=== PATIENT | male | born 1970 | race American Indian/Alaskan Native ===

== ENCOUNTER 2019-05-19 06:00 | Day surgery (SDC) | payer MEDICARE ==
[~2019-05-19 06:00] MED LIST: SODIUM CHLORIDE 0.9% 1000 ML 1,000 ML IV SCH; SODIUM CHLORIDE 0.9% IRR 1,500 ML BOTTLE IR ONE; ceFAZolin/Water 2 GM/20 ML 2 GM/20 ML SYRINGE IV NR
[2019-05-19] MEDS ORDERED: BACTERIOSTATIC SODIUM CHLORIDE 0.9% 30 ML VIAL INFILTRATI ONE (06:02)
[2019-05-19 07:12] LABS: Calcium 8.7 mg/dL (8.4-10.2)
[2019-05-19] MEDS ORDERED: fentaNYL 100 MCG/2 ML INJ IV PRN (07:12)
--- NOTE | 2019-05-19 07:14 | Anesthesia Day of Surgery ---
Anesthesia Day of Surgery - Day of Surgery Patient Examined: Yes Patient H&P Reviewed: Yes Patient is NPO: Yes
--- NOTE | 2019-05-19 07:14 | Anesthesia Consultation ---
Anesthesia Consult and Med Hx Date of service: 05/19/19 - Airway Anesthetic Teeth Evaluation: Chipped ROM Head & Neck: Adequate Mental/Hyoid Distance: Adequate Mallampati Class: Class II Intubation Access Assessment: Possibly Difficult - Pulmonary Exam CTA: Yes - Cardiac Exam Cardiac Exam: RRR - Pre-Operative Health Status ASA Pre-Surgery Classification: ASA3 Proposed Anesthetic Plan: General - Pulmonary Hx Asthma: Yes (last inhaler use >2 months ago) Hx Respiratory Symptoms: No - Cardiovascular System Hx Hypertension: Yes (took nifedipine and hydralazine this morning) Hx Heart Attack/AMI: No Hx Percutaneous Transluminal Coronary Angioplasty (PTCA): No Hx Cardia Arrhythmia: No - Central Nervous System CVA: No Hx Psychiatric Problems: No - Gastrointestinal Hx Gastroesophageal Reflux Disease: No - Endocrine Hx End Stage Renal Disease: Yes (last HD 05/17/2019) Hx Liver Disease: No Hx Non-Insulin Dependent Diabetes: Yes Hx Thyroid Disease: No - Other Systems Hx Obesity: Yes (BMI 47) - Additional Comments Anesthesia Medical History Comments: No hx anesthetic complications.
[2019-05-19] MEDS ORDERED: THROMBIN (RECOMBINANT) 5,000 UNIT VIAL TP ONE ×2 (07:15→09:33)
[2019-05-19] MEDS ORDERED: GELATIN SPONGE SIZE 100 TP ONE (07:15)
[2019-05-19] MEDS ORDERED: SODIUM CHLORIDE 0.9% 250ML 250 ML ONE (07:16)
[2019-05-19] MEDS ORDERED: HEPARIN 10,000 UNITS/10 ML VIAL ONE (07:16)
[2019-05-19] MEDS ORDERED: BUPIVACAINE-EPINEPHRINE/PF 0.25%-1:200,000 (30 ML) VIAL INFILTRATI ONE (07:17)
[2019-05-19] MEDS ORDERED: LIDOCAINE (1%) 10 MG/1 ML VIAL 20 ML MDV ONE (07:17)
[2019-05-19 07:38] LABS: Basophils # (Auto) 0.1 K/mm3 (0.0-0.1); Eosinophils # (Auto) 0.2 K/mm3 (0.0-0.4); Eosinophils % (Auto) 2.3 % (0.0-4.3); Hematocrit 22.4 % (35.5-45.6); Hemoglobin 7.3 gm/dl (11.8-15.2); Lymphocytes # (Auto) 1.3 K/mm3 (1.2-5.4); Lymphocytes % (Auto) 17.5 % (13.4-35.0); Mean Corpuscular HGB Conc 33 % (32-34); Mean Corpuscular Volume 93 fl (84-94); Monocytes # (Auto) 0.6 K/mm3 (0.0-0.8); Monocytes % (Auto) 8.2 % (0.0-7.3); Platelet Count 316 K/mm3 (140-440); Red Cell Distribution Width 18.2 % (13.2-15.2)
[2019-05-19] MEDS ORDERED: HYDROmorphone 1 MG/1 ML INJ ONE (07:48)
[2019-05-19] MEDS ORDERED: PROPOFOL 200 MG/20 ML VIAL IV ONE ×2 (07:48→08:29)
[2019-05-19] MEDS ORDERED: LIDOCAINE MPF (2%) 20 MG/1 ML VIAL 5 ML ONE (07:50)
[2019-05-19] MEDS ORDERED: HEPARIN 10,000 UNITS/10 ML VIAL IV ONE (09:17)
[2019-05-19] MEDS ORDERED: SODIUM CHLORIDE 0.9% 250 ML IVPB IV ONE (09:17)
[2019-05-19] MEDS ORDERED: GELATIN SPONGE 12 X 7 TP ONE (09:33)
[2019-05-19] MEDS ORDERED: SODIUM CHLORIDE 0.9% IRR 1,500 ML BOTTLE IR ONE (09:37)
[2019-05-19] MEDS ORDERED: PROTAMINE SULFATE 50 MG/5 ML INJ ONE (09:49)
--- NOTE | 2019-05-19 10:14 | Post Operative Note ---
Pre-op diagnosis: ESRD Post-op diagnosis: same Procedure: Left Arm Brachiocephalic AV Fistula Creation Anesthesia: GETA Surgeon: ALBA SPEARS Estimated blood loss: minimal Pathology: none Condition: stable Disposition: PACU
[2019-05-19] MEDS ORDERED: oxyCODONE /ACETAMINOPHEN 5-325MG TAB PO PRN (10:19)
--- NOTE | 2019-05-19 10:19 | Short Stay Summary ---
Short Stay Documentation Date of service: 05/19/19 - History H&P: obtained from office Past Medical History: diabetes, ESRD - Allergies and Medications Current Medications: Allergies diphenhydramine [From Benadryl] Allergy (Verified 05/14/19 16:14) Hives seafood Allergy (Uncoded 05/14/19 16:14) Shortness of Breath Home Medications Medication Instructions Recorded Confirmed Last Taken Type Docusate Sodium [Colace CAP] 100 mg PO BID #60 capsule 05/02/19 05/19/19 05/18/19 09:00 Rx Fe Fumarate/FA/Mv, Min Comb#15 1 each PO QDAY #90 capsule 05/02/19 05/19/19 05/18/19 09:00 Rx [Hemocyte Plus] Furosemide [Lasix TAB] 80 mg PO DAILY #30 tablet 05/02/19 05/19/19 05/18/19 09:00 Rx NIFEdipine XL [Procardia Xl] 60 mg PO Q12HR #60 tablet 05/02/19 05/19/19 05/19/19 04:30 Rx hydrALAZINE [Apresoline TAB] 100 mg PO TID #90 tab 05/02/19 05/19/19 05/19/19 04:30 Rx Albuterol Sulfate [Proventil Hfa] 2 puff IH Q4H PRN 05/14/19 05/14/19 Unknown History Active Medications Fentanyl (Sublimaze) 50 mcg IV Q5MIN PRN PRN Reason: Pain , Severe (7-10) Stop: 05/19/19 22:00 Cefazolin Sodium (Ancef/Sterile Water 2 Gm/20 Ml) 2 gm in 20 mls @ 80 mls/hr IV PREOP NR; Protocol Stop: 05/19/19 23:59 Sodium Chloride (Nacl 0.9% 1000 Ml) 1,000 mls @ 42 mls/hr IV DIRECT HANDY Last Admin: 05/19/19 07:00 Dose: 42 mls/hr Documented by: - Physical exam General appearance: no acute distress Lungs: Normal air movement Heart: Regular rate Extremities: no ischemia - Hospital course Hospital course: the patient was taken to the operating room and had a left arm av fistula creation performed. please refer to the operative note concerning details of the procedure. the patient tolerated the procedure well and was discharged home in stable condition. - Disposition Condition at discharge: Stable Disposition: DC-01 TO HOME OR SELFCARE - Discharge Diagnoses (1) ESRD (end stage renal disease) on dialysis Status: Acute Short Stay Discharge Plan Follow up with: ENZO SANDOVAL MD [Primary Care Provider] - 7 Days
--- NOTE | 2019-05-19 11:07 | Operative Report ---
STAFF SURGEON: Dr. Ho Torres. PREOPERATIVE DIAGNOSIS: End-stage renal disease. POSTOPERATIVE DIAGNOSIS: End-stage renal disease. PROCEDURE PERFORMED: Left arm brachiocephalic AV fistula creation. COMPLICATIONS: None. ESTIMATED BLOOD LOSS: 10 mL. ANESTHESIA: General. INDICATIONS FOR PROCEDURE: This is a 49-year-old gentleman with insulin-dependent diabetes mellitus and end-stage renal disease, on hemodialysis via right IJ PermCath in need of upper extremity access creation. The patient had preoperative vein mapping, which demonstrated thought to be suitable upper arm cephalic vein for AV fistula creation. The patient was explained the risks, benefits and alternatives of procedure, expressed understanding, and wished to proceed. DESCRIPTION OF PROCEDURE: After appropriate consent was obtained, the patient was brought back to the operating room and placed on the operating table in supine position with the left arm extended. The patient was given appropriate medication for general anesthesia, had LMA placed without difficulty. The left arm was prepped and draped in the usual sterile fashion with ChloraPrep. Appropriate preoperative antibiotics were administered. Appropriate timeout was performed indicating correct patient, procedure, and site of procedure. I then began the operation by making a transverse incision just below the antecubital fossa. This was carried through the subcutaneous tissue with a combination of blunt dissection and electrocautery. The cephalic vein was identified and found to be suitable size for venous outflow. The vein was then mobilized in its entirety of the incision both proximally and distally. Branches were controlled and ligated with silk suture. I then proceeded to continue with our dissection medially through the bicipital aponeurosis. The brachial artery was identified and found to be suitable for arterial inflow and so it was mobilized for appropriate distance both proximally and distally. The patient was given unfractionated heparin intravenously. After appropriate timeout elapsed, I then proceeded to place a clamp on the cephalic vein in the distal aspect of the incision. This was transected. A bulldog was placed on the proximal portion and the anterior surface was marked and then proceeded to flush the cephalic vein with a heparinized saline. The stump of the vein was ligated with a 3-0 silk suture. We then proceeded to place vascular clamps on the brachial artery, both proximally and distally. A longitudinal arteriotomy was made with an 11 blade and extended with Nugent scissors and then proceeded to perform the end-to-side anastomosis with a running 6-0 Prolene suture. Once complete, flow was reestablished through the AV fistula and had a nice palpable thrill. The distal clamp was removed. We then looked to obtain hemostasis along our suture line, which was obtained with hemostatic agents. The patient was also given protamine for heparinization reversal and satisfied with hemostasis, closed along with the deep subcutaneous layer with interrupted 3-0 PDS, and skin was approximated with 4-0 Monocryl and with Dermabond dressing. The patient tolerated the procedure well, emerged from the general anesthesia, had the LMA removed, and was sent to recovery in stable condition. All sponge, instrument and needle counts were correct at completion of the operation. JOB# [id number] SOFIA/SPARKLE
--- NOTE | 2019-05-19 16:59 | Post Anesthesia Evaluation ---
- Post Anesthesia Evaluation Patient Participated: Yes Airway Patent: Yes Stable Respiratory Function: Yes Nausea/Vomiting: No Temp > 96.8F: Yes Pain Manageable: Yes Adequeate Hydration: Yes Anesthesia Complications: No Block Receding Appropriately: Not Applicable Patient on Ventilator: No
[2019-05-19 21:30] VITALS: BP 138/76
== END 2019-05-19 06:01 | disposition home or self-care (01) ==
LOC: OR 06:00
PROVIDERS: ATTEND Surgery Vascular Surgery
DX: I12.0 Hypertensive chronic kidney disease with stage 5 chronic kidney disease or end stage renal disease (principal); E11.22 Type 2 diabetes mellitus with diabetic chronic kidney disease; E11.319 Type 2 diabetes mellitus with unspecified diabetic retinopathy without macular edema; N18.6 End stage renal disease; E66.2 Morbid (severe) obesity with alveolar hypoventilation; G93.41 Metabolic encephalopathy; E78.00 Pure hypercholesterolemia, unspecified; J45.909 Unspecified asthma, uncomplicated; Z88.8 Allergy status to other drugs, medicaments and biological substances; Z91.013 Allergy to seafood; Z79.899 Other long term (current) drug therapy; Z98.41 Cataract extraction status, right eye; Z68.42 Body mass index [BMI] 45.0-49.9, adult
CPT/HCPCS: 36415; 36821; 80048; 82962; 85025; A4649; J0690; J1170; J1644; J2704; J2720; J7030; J7050

== ENCOUNTER 2019-07-14 11:35 | Day surgery (SDC) | payer MEDICARE ==
[~2019-07-14 11:35] MED LIST changes: +GELATIN SPONGE SIZE 100 TP ONE; -SODIUM CHLORIDE 0.9% IRR 1,500 ML BOTTLE IR ONE; +THROMBIN (RECOMBINANT) 5,000 UNIT VIAL TP ONE; -ceFAZolin/Water 2 GM/20 ML 2 GM/20 ML SYRINGE IV NR
[2019-07-14 13:09] LABS: Hematocrit 32.2 % (35.5-45.6); Hemoglobin 10.3 gm/dl (11.8-15.2); Mean Corpuscular HGB Conc 32 % (32-34); Mean Corpuscular Volume 93 fl (84-94); Platelet Count 253 K/mm3 (140-440); Red Blood Count 3.48 M/mm3 (3.65-5.03)
[2019-07-14 13:25] LABS: Calcium 8.3 mg/dL (8.4-10.2)
[2019-07-14] MEDS ORDERED: fentaNYL 100 MCG/2 ML INJ IV PRN (17:13)
== END 2019-07-14 11:36 | disposition home or self-care (01) ==
LOC: OR 11:35
PROVIDERS: ATTEND Surgery Vascular Surgery
DX: I12.0 Hypertensive chronic kidney disease with stage 5 chronic kidney disease or end stage renal disease (principal); E11.22 Type 2 diabetes mellitus with diabetic chronic kidney disease; N18.6 End stage renal disease; E78.00 Pure hypercholesterolemia, unspecified; E11.39 Type 2 diabetes mellitus with other diabetic ophthalmic complication; J45.909 Unspecified asthma, uncomplicated; E66.9 Obesity, unspecified; Z98.890 Other specified postprocedural states; Z91.013 Allergy to seafood; Z53.8 Procedure and treatment not carried out for other reasons
CPT/HCPCS: 36415; 80048; 82962; 85027; A4649; J7030; J0690

== ENCOUNTER 2019-07-18 06:36 | Day surgery (SDC) | payer MEDICARE ==
[~2019-07-18 06:36] MED LIST changes: -GELATIN SPONGE SIZE 100 TP ONE; -THROMBIN (RECOMBINANT) 5,000 UNIT VIAL TP ONE
[2019-07-18] MEDS ORDERED: BACTERIOSTATIC SODIUM CHLORIDE 0.9% 30 ML VIAL INFILTRATI ONE (06:56)
[2019-07-18] MEDS ORDERED: ceFAZolin/Water 2 GM/20 ML 2 GM/20 ML SYRINGE IV NR (07:00)
[2019-07-18] MEDS ORDERED: fentaNYL 100 MCG/2 ML INJ IV PRN (08:30)
--- NOTE | 2019-07-18 08:30 | Anesthesia Day of Surgery ---
Anesthesia Day of Surgery - Day of Surgery Patient Examined: Yes Patient H&P Reviewed: Yes Patient is NPO: Yes
--- NOTE | 2019-07-18 08:30 | Anesthesia Consultation ---
Anesthesia Consult and Med Hx Date of service: 07/18/19 - Airway Anesthetic Teeth Evaluation: Good ROM Head & Neck: Adequate Mental/Hyoid Distance: Adequate Mallampati Class: Class III Intubation Access Assessment: Possibly Difficult (previous easy LMA 4 placement) - Pulmonary Exam CTA: Yes - Cardiac Exam Cardiac Exam: RRR - Pre-Operative Health Status ASA Pre-Surgery Classification: ASA3 Proposed Anesthetic Plan: General - Pulmonary Hx Asthma: Yes (last inhaler use after exposure to seafood) Hx Respiratory Symptoms: No - Cardiovascular System Hx Hypertension: Yes (took hydralazine and nifedipine this morning) Hx Heart Attack/AMI: No Hx Percutaneous Transluminal Coronary Angioplasty (PTCA): No Hx Cardia Arrhythmia: No - Central Nervous System CVA: No Hx Psychiatric Problems: No - Gastrointestinal Hx Gastroesophageal Reflux Disease: No - Endocrine Hx End Stage Renal Disease: Yes (last HD 07/17/2019) Hx Liver Disease: No Hx Non-Insulin Dependent Diabetes: Yes Hx Thyroid Disease: No - Hematic Hx Anemia: Yes - Other Systems Hx Obesity: Yes (BMI 44) - Additional Comments Anesthesia Medical History Comments: No hx anesthetic complications.
[2019-07-18] MEDS ORDERED: propofoL 200 MG/20 ML VIAL IV ONE ×2 (08:47→09:31)
[2019-07-18] MEDS ORDERED: LIDOCAINE MPF (2%) 20 MG/1 ML VIAL 5 ML ONE (08:47)
[2019-07-18] MEDS ORDERED: HYDROmorphone 1 MG/1 ML INJ ONE (08:47)
[2019-07-18] MEDS ORDERED: ONDANSETRON 4 MG/2 ML INJ ONE (08:47)
[2019-07-18] MEDS ORDERED: PROTAMINE SULFATE 50 MG/5 ML INJ ONE (08:53)
[2019-07-18] MEDS ORDERED: THROMBIN (RECOMBINANT) 5,000 UNIT VIAL TP ONE ×2 (08:53→10:00)
[2019-07-18] MEDS ORDERED: HEPARIN 10,000 UNITS/10 ML VIAL ONE (08:53)
[2019-07-18] MEDS ORDERED: SODIUM CHLORIDE 0.9% 250ML 250 ML ONE (08:53)
[2019-07-18] MEDS ORDERED: GELATIN SPONGE SIZE 100 TP ONE ×2 (09:36→10:00)
[2019-07-18] MEDS ORDERED: ceFAZolin 1 GM VIAL ONE (09:44)
[2019-07-18] MEDS ORDERED: HEPARIN 10,000 UNITS/10 ML VIAL IR ONE (09:59)
[2019-07-18] MEDS ORDERED: SODIUM CHLORIDE 0.9% 250 ML IVPB IR ONE (09:59)
[2019-07-18] MEDS ORDERED: SODIUM CHLORIDE 0.9% IRR 1,500 ML BOTTLE IR ONE (10:00)
[2019-07-18] MEDS ORDERED: PROTAMINE SULFATE 50 MG/5 ML INJ IV ONE (10:51)
[2019-07-18] MEDS ORDERED: oxyCODONE /ACETAMINOPHEN 5-325MG TAB PO PRN (12:38)
--- NOTE | 2019-07-18 12:38 | Post Operative Note ---
Date of procedure: 07/18/19 Pre-op diagnosis: ESRD Post-op diagnosis: same Procedure: Left Arm Cephalic Vein Transposition Anesthesia: GETA Surgeon: ALBA SPEARS Estimated blood loss: other (25ml) Pathology: none Condition: stable Disposition: PACU
--- NOTE | 2019-07-18 12:40 | Short Stay Summary ---
Short Stay Documentation Date of service: 07/18/19 - History H&P: obtained from office Past Medical History: diabetes, ESRD - Allergies and Medications Current Medications: Allergies diphenhydramine [From Benadryl] Allergy (Verified 07/16/19 10:58) Hives seafood Allergy (Uncoded 07/16/19 10:58) Shortness of Breath Home Medications Medication Instructions Recorded Confirmed Last Taken Type Docusate Sodium [Colace CAP] 100 mg PO BID #60 capsule 05/02/19 07/16/19 07/17/19 Rx Fe Fumarate/FA/Mv, Min Comb#15 1 each PO QDAY #90 capsule 05/02/19 07/16/19 07/17/19 Rx [Hemocyte Plus] Furosemide [Lasix TAB] 80 mg PO DAILY #30 tablet 05/02/19 07/16/19 07/17/19 Rx NIFEdipine XL [Procardia Xl] 60 mg PO Q12HR #60 tablet 05/02/19 07/16/19 07/18/19 04:45 Rx hydrALAZINE [Apresoline TAB] 100 mg PO TID #90 tab 05/02/19 07/16/19 07/18/19 04:45 Rx Albuterol Sulfate [Proventil Hfa] 2 puff IH Q4H PRN 05/14/19 07/16/19 04/16/19 08:00 History Active Medications Fentanyl (Sublimaze) 50 mcg IV Q5MIN PRN PRN Reason: Pain , Severe (7-10) Stop: 07/18/19 23:00 Cefazolin Sodium (Ancef/Sterile Water 2 Gm/20 Ml) 2 gm in 20 mls @ 80 mls/hr IV PREOP NR; Protocol Stop: 07/18/19 23:59 Sodium Chloride (Nacl 0.9% 1000 Ml) 1,000 mls @ 42 mls/hr IV DIRECT HANDY Last Admin: 07/18/19 07:10 Dose: 42 mls/hr Documented by: - Physical exam General appearance: no acute distress Lungs: Normal air movement Heart: Regular rate Extremities: no ischemia - Hospital course Hospital course: the patient was taken to the operating room and had a left arm cephalic vein transposition performed. please refer to the operative note concerning details of the procedure. the patient tolerated the procedure well and was discharged home in stable condition. - Disposition Condition at discharge: Stable Disposition: DC-01 TO HOME OR SELFCARE - Discharge Diagnoses (1) ESRD (end stage renal disease) on dialysis Status: Acute Short Stay Discharge Plan Follow up with: ENZO SANDOVAL MD [Primary Care Provider] - 7 Days
--- NOTE | 2019-07-18 12:57 | Operative Report ---
SURGEON: Dr. Ho Torres. PREOPERATIVE DIAGNOSIS: End-stage renal disease. POSTOPERATIVE DIAGNOSIS: End-stage renal disease. PROCEDURE PERFORMED: Left arm cephalic vein transposition. COMPLICATIONS: None. ESTIMATED BLOOD LOSS: 25 mL. ANESTHESIA: General. INDICATIONS FOR PROCEDURE: This is a 49-year-old gentleman with end-stage renal disease, on hemodialysis, who had a left brachiocephalic AV fistula created that matured properly. However, I attempted cannulation by the patient's facility, they were unable to cannulate the fistula. The patient had a diagnostic fistulogram that was unremarkable and it was felt that the fistula was too deep and would require transposition. The patient was explained the risks, benefits and alternatives of procedure, expressed understanding and wished to proceed. DESCRIPTION OF PROCEDURE: After appropriate consent was obtained, the patient was brought back to the operating room and placed on the operating table in supine position with left arm extended. The patient was given appropriate medication for general anesthesia, had LMA placed without difficulty. Left arm was prepped and draped in the usual sterile fashion with ChloraPrep. Appropriate preoperative antibiotics were administered. Appropriate timeout was performed indicating correct patient, procedure, and site of the procedure. I then began the operation by making a longitudinal incision just proximal to the antecubital fossa overlying the AV fistula. This was carried through subcutaneous tissue with a combination of blunt dissection and electrocautery, the AV fistula was identified. The incision was then extended proximally up the arm near the shoulder. Again, the dissection was continued through the subcutaneous tissue with a combination of blunt dissection and electrocautery. The fistula was exposed in its entirety. The branches of the cephalic vein were identified, clamped and then transected and ligated with silk suture. The fistula was completely mobilized, the anterior surface was marked. Vascular clamps were placed on the cephalic vein, both proximally and distally. It was transected near the distal end of the incision. The rest of the vein was flushed with heparinized saline, then proceeded to create a tunnel medial to the incision. A subcutaneous tunnel medial to the incision with care to avoid any twisting or kinking. We then proceeded to do an end-to-end anastomosis between the two cut ends with a running 6-0 Prolene suture. Once this was completed, the vascular clamps were removed. Flow was reestablished through the fistula had a nice palpable thrill. We then looked to obtain hemostasis along the suture line, which was obtained with hemostatic agents. Once we were satisfied with hemostasis, we then proceeded to close the wound with interrupted PDS for deep subcutaneous layer and then the skin was approximated with rosette. Appropriate dressing was placed. The patient tolerated the procedure well, emerged from the general anesthesia, the LMA removed without difficulty and was sent to recovery in stable condition. All sponge, instrument and needle counts were correct at completion of the operation. JOB# [id number] N/SPARKLE
[2019-07-18 13:19] VITALS: BP 120/65
--- NOTE | 2019-07-18 15:43 | Post Anesthesia Evaluation ---
- Post Anesthesia Evaluation Patient Participated: Yes Airway Patent: Yes Stable Respiratory Function: Yes Nausea/Vomiting: No Temp > 96.8F: Yes Pain Manageable: Yes Adequeate Hydration: Yes Anesthesia Complications: No
== END 2019-07-18 06:37 | disposition home or self-care (01) ==
LOC: OR 06:36
PROVIDERS: ATTEND Surgery Vascular Surgery
DX: I12.0 Hypertensive chronic kidney disease with stage 5 chronic kidney disease or end stage renal disease (principal); E11.22 Type 2 diabetes mellitus with diabetic chronic kidney disease; E78.00 Pure hypercholesterolemia, unspecified; D64.9 Anemia, unspecified; E11.39 Type 2 diabetes mellitus with other diabetic ophthalmic complication; J45.909 Unspecified asthma, uncomplicated; Z98.890 Other specified postprocedural states; Z98.41 Cataract extraction status, right eye; Z91.013 Allergy to seafood; G93.41 Metabolic encephalopathy; E66.2 Morbid (severe) obesity with alveolar hypoventilation; Z88.8 Allergy status to other drugs, medicaments and biological substances; Z79.899 Other long term (current) drug therapy
CPT/HCPCS: 36415; 36818; 82962; 84132; A4649; J0690; J1170; J1644; J2405; J2704; J2720; J7030; J7050

== ENCOUNTER 2020-07-27 07:34 | Day surgery (SDC) | payer MEDICARE ==
--- NOTE | 2020-07-27 08:37 | Anesthesia Day of Surgery ---
Anesthesia Day of Surgery - Day of Surgery Patient Examined: Yes Patient H&P Reviewed: Yes Patient is NPO: Yes
--- NOTE | 2020-07-27 08:37 | Anesthesia Consultation ---
Anesthesia Consult and Med Hx Date of service: 07/27/20 - Airway Anesthetic Teeth Evaluation: Poor, Chipped ROM Head & Neck: Adequate Mental/Hyoid Distance: Adequate Mallampati Class: Class III Intubation Access Assessment: Possibly Difficult - Pulmonary Exam CTA: Yes - Cardiac Exam Cardiac Exam: RRR - Pre-Operative Health Status ASA Pre-Surgery Classification: ASA3 Proposed Anesthetic Plan: MAC - Pre-Anesthesia Comment Pre-Anesthesia Comments: Covid 05/2020 - Pulmonary Hx Asthma: Yes - Cardiovascular System Hx Hypertension: Yes ( discontinued meds 6months ) - Central Nervous System CVA: No Hx Psychiatric Problems: No - Gastrointestinal Hx Gastroesophageal Reflux Disease: No - Endocrine Hx Renal Disease: Yes Hx End Stage Renal Disease: Yes (Tu/Thur/Sat last HD 07/24) Hx Non-Insulin Dependent Diabetes: Yes - Hematic Hx Anemia: Yes - Other Systems Hx Obesity: Yes (BMI 44)
[2020-07-27] MEDS ORDERED: propofoL 200 MG/20 ML VIAL IV ONE ×2 (09:21)
--- NOTE | 2020-07-27 10:32 | Short Stay Summary ---
Short Stay Documentation Date of service: 07/27/20 - History H&P: obtained from office - Allergies and Medications Current Medications: Allergies diphenhydramine [From Benadryl] Allergy (Verified 07/16/19 10:58) Hives seafood Allergy (Uncoded 07/16/19 10:58) Shortness of Breath Home Medications Medication Instructions Recorded Confirmed Last Taken Type Docusate Sodium [Colace CAP] 100 mg PO BID #60 capsule 05/02/19 07/27/20 07/25/20 Rx Furosemide [Lasix TAB] 80 mg PO DAILY #30 tablet 05/02/19 07/27/20 07/26/20 Rx Albuterol Sulfate [Proventil Hfa] 2 puff IH Q4H PRN 05/14/19 07/27/20 11/15/19 History Active Medications Sodium Chloride (Nacl 0.9% 1000 Ml) 1,000 mls @ 50 mls/hr IV DIRECT HANDY Last Admin: 07/27/20 09:00 Dose: 50 mls/hr Documented by: - Brief post op/procedure progress note Date of procedure: 07/27/20 Procedure: see dictation Estimated blood loss: none Pathology: none Condition: stable - Disposition Condition at discharge: Good Disposition: DC-01 TO HOME OR SELFCARE - Discharge Diagnoses (1) Iron deficiency anemia due to chronic blood loss Status: Acute Short Stay Discharge Plan Activity: other (no driving for 24 hours) Weight Bearing Status: Full Weight Bearing Diet: renal Follow up with: ENZO SANDOVAL MD [Primary Care Provider] - 7 Days
--- NOTE | 2020-07-27 10:36 | Operative Report ---
Operative Report Operative Report: Date of procedure: 07/27/2020 Preprocedure diagnosis: Iron deficiency anemia due to suspected GI blood loss Post procedure diagnosis: Mild sigmoid diverticulosis, otherwise normal study although incomplete prep of the cecum Procedure: Colonoscopy to the cecum Endoscopist: Dr. Bryan Anesthesia: Monitored anesthesia care per anesthesia department Estimated blood loss: 0 Medications: Monitored anesthesia care. See separate report by anesthesia for details. After careful discussion of the nature and purpose of the procedure as well as details of the technique risks benefits and alternatives the patient gave consent. Please see recent history and physical from the office. The patient was placed in the left lateral decubitus position and medicated per anesthesia. A rectal exam was performed sphincter tone was normal there were no masses palpable. The [employer] 570 scope was passed transanally and advanced under continuous direct vision without difficulty to the cecum. The colon was largely well prepared except for the cecum. The cecum was grossly normal although there were areas of the cecum where the mucosa could not be seen due to incomplete clearance of stool. The ascending colon was normal. The transverse colon and descending colon were normal. There were a few sigmoid diverticula present. The rectum was normal on forward and retroflexed views. The procedure was well- tolerated overall and the patient was observed in recovery. Conclusions: Few sigmoid diverticula. Incomplete cecal prep. Normal colon otherwise. Plan: Repeat colonoscopy in 1 to 2 years due to incomplete cecal prep. Signed electronically: Geovanni Bryan M.D.
[2020-07-27 11:18] VITALS: BP 141/62
== END 2020-07-27 11:20 | disposition home or self-care (01) ==
LOC: GIO 07:34
PROVIDERS: ATTEND Internal Medicine Gastroenterology
DX: D50.0 Iron deficiency anemia secondary to blood loss (chronic) (principal); K57.30 Diverticulosis of large intestine without perforation or abscess without bleeding; G93.41 Metabolic encephalopathy; E78.00 Pure hypercholesterolemia, unspecified; J45.909 Unspecified asthma, uncomplicated; E66.9 Obesity, unspecified; I12.0 Hypertensive chronic kidney disease with stage 5 chronic kidney disease or end stage renal disease; E11.22 Type 2 diabetes mellitus with diabetic chronic kidney disease; N18.6 End stage renal disease; Z88.8 Allergy status to other drugs, medicaments and biological substances; Z79.899 Other long term (current) drug therapy; Z98.41 Cataract extraction status, right eye; Z98.890 Other specified postprocedural states; Z68.42 Body mass index [BMI] 45.0-49.9, adult
CPT/HCPCS: 45378; 82962; J2704; J7030

== ENCOUNTER 2020-08-03 18:05 | Observation (INO) | payer MEDICARE ==
[2020-08-03 19:40] LABS: Hematocrit 31.1 % (35.5-45.6); Mean Corpuscular HGB Conc 32 % (32-34); Mean Corpuscular Volume 102 fl (84-94); Platelet Count 266 K/mm3 (140-440); Red Blood Count 3.04 M/mm3 (3.65-5.03); Red Cell Distribution Width 16.4 % (13.2-15.2)
[2020-08-03 19:49] LABS: Calcium 7.2 mg/dL (8.4-10.2)
--- NOTE | 2020-08-03 20:12 | Emergency Department Report ---
ED General Adult HPI - General Chief complaint: Medical Clearance Stated complaint: REFFERED BY VASCULAR DOCTOR Time Seen by Provider: 08/03/20 20:05 Source: patient Mode of arrival: Ambulatory Limitations: No Limitations - History of Present Illness Initial comments: Patient is 50 years old male with history of end-stage renal disease on hemodialysis. Patient was sent from Dr. Egan, vascular surgeon for admission for emergency dialysis. Patient had a permacath placed in his office. Patient stated that he usually goes Sunday, Sunday and . Patient denied any symptom at this moment. Patient was found to have a potassium of 6.2 in the office. - Related Data Home Medications Medication Instructions Recorded Confirmed Last Taken Albuterol Sulfate [Proventil Hfa] 2 puff IH Q4H PRN 05/14/19 07/27/20 11/15/19 Previous Rx's Medication Instructions Recorded Last Taken Type Docusate Sodium [Colace CAP] 100 mg PO BID #60 capsule 05/02/19 07/25/20 Rx Furosemide [Lasix TAB] 80 mg PO DAILY #30 tablet 05/02/19 07/26/20 Rx Allergies Allergy/AdvReac Type Severity Reaction Status Date / Time diphenhydramine Allergy Hives Verified 07/16/19 10:58 [From Benadryl] seafood Allergy Shortness Uncoded 07/16/19 10:58 of Breath ED Review of Systems ROS: Stated complaint: REFFERED BY VASCULAR DOCTOR Other details as noted in HPI Comment: All other systems reviewed and negative Constitutional: denies: chills, fever Respiratory: denies: cough, shortness of breath, SOB with exertion Cardiovascular: denies: chest pain, palpitations Gastrointestinal: denies: abdominal pain, nausea Musculoskeletal: denies: back pain Neurological: denies: headache, weakness, numbness ED Past Medical Hx - Past Medical History Previous Medical History?: Yes Hx Hypertension: Yes ( discontinued meds 6months ) Hx Diabetes: Yes Hx Renal Disease: Yes (on dialysis ,, ) Hx Asthma: Yes - Surgical History Past Surgical History?: Yes Additional Surgical History: Vas cath placed 08/03/20 - Social History Smoking Status: Never Smoker - Medications Home Medications: Home Medications Medication Instructions Recorded Confirmed Last Taken Type Docusate Sodium [Colace CAP] 100 mg PO BID #60 capsule 01/07/27/20 07/25/20 Rx Furosemide [Lasix TAB] 80 mg PO DAILY #30 tablet 05/02/19 07/27/20 07/26/20 Rx Albuterol Sulfate [Proventil Hfa] 2 puff IH Q4H PRN 05/14/19 07/27/20 11/15/19 History ED Physical Exam - General Limitations: No Limitations General appearance: alert, in no apparent distress - Head Head exam: Present: atraumatic, normocephalic, normal inspection - Eye Eye exam: Present: normal appearance - ENT ENT exam: Present: normal exam, normal orophraynx, mucous membranes moist - Neck Neck exam: Present: normal inspection, full ROM. Absent: tenderness, meningismus - Respiratory Respiratory exam: Present: normal lung sounds bilaterally - Cardiovascular Cardiovascular Exam: Present: regular rate, normal rhythm, normal heart sounds - GI/Abdominal GI/Abdominal exam: Present: soft, normal bowel sounds. Absent: distended, tenderness, guarding, rebound, rigid, organomegaly, mass, bruit, pulsatile mass, hernia - Extremities Exam Extremities exam: Present: normal inspection, full ROM, normal capillary refill. Absent: pedal edema, calf tenderness - Back Exam Back exam: Present: normal inspection, full ROM. Absent: CVA tenderness (R), CVA tenderness (L) - Neurological Exam Neurological exam: Present: alert, oriented X3, CN II-XII intact - Psychiatric Psychiatric exam: Present: normal mood - Skin Skin exam: Present: warm, intact, normal color ED Course Vital Signs 08/03/20 19:50 Temperature 98.1 F Pulse Rate 95 H Respiratory 18 Rate Blood Pressure 180/80 [Right] O2 Sat by Pulse 99 Oximetry ED Medical Decision Making - Lab Data Result diagrams: 08/03/20 19:15 08/03/20 19:15 - Medical Decision Making Patient is 50 years old male with history of end-stage renal disease on hemodialysis. Patient was sent from Dr. Egan, vascular surgeon for admission for emergency dialysis. Patient had a permacath placed in his office. Patient stated that he usually goes Sunday, Sunday and . Patient denied any symptom at this moment. Patient was found to have a potassium of 6.2 in the office. Patient potassium in the ER is 6. I discussed the patient with Dr. Walsh and she stated that patient can be given Kayexalate and patient will be dialyzed in the morning. Critical Care Time: Yes Critical care time in (mins) excluding proc time.: 30 Critical care attestation.: If time is entered above; I have spent that time in minutes in the direct care of this critically ill patient, excluding procedure time. ED Disposition Clinical Impression: Acute hyperkalemia, End-stage renal disease needing dialysis Disposition: OP ADMIT IP TO THIS HOSP Is pt being admited?: Yes Condition: Stable
[2020-08-03] MEDS ORDERED: SODIUM POLYSTYRENE 15 GM/60 ML ORAL LIQD PO ONE (20:22)
[2020-08-03] MEDS ORDERED: INSULIN REGULAR, HUMAN 100 UNITS/1 ML IV ONE (20:22)
[2020-08-03] MEDS ORDERED: ALBUTEROL 2.5 MG/3 ML NEBU IH ONE (20:23)
[2020-08-03 20:32] LABS: Total Cells Counted 100
[2020-08-03 20:33] LABS: Platelet Estimate Consistent w Auto; RBC Morphology Normal
[2020-08-03] MEDS ORDERED: CALCIUM CHLORIDE 1,000 MG in SODIUM CHLORIDE 0.9% 100 ML IV ONE (21:00)
[2020-08-03] MEDS ORDERED: ALBUTEROL 8.5 GM MDI INHALATION IH PRN (22:02)
[2020-08-03] MEDS ORDERED: ONDANSETRON 4 MG/2 ML INJ IV PRN (22:03)
[2020-08-03] MEDS ORDERED: ACETAMINOPHEN 325 MG TAB PO PRN (22:03)
[2020-08-03] MEDS ORDERED: hydrALAZINE 20 MG/1 ML INJ IV PRN (22:05)
[2020-08-03] MEDS ORDERED: ALBUTEROL 2.5 MG/3 ML NEBU IH PRN (22:10)
--- NOTE | 2020-08-03 22:11 | History and Physical Report ---
History of Present Illness Date of examination: 08/03/20 Date of admission: 08/03/20 Chief complaint: End-stage renal disease on hemodialysis Hyperkalemia History of present illness: 50 years old male with history of end-stage renal disease on hemodialysis on Sunday and Sunday was sent from Dr. Egan, vascular surgeon for admission for emergency dialysis. Patient had a permacath placed in his office. Patient denied any symptom at this moment. In the ER patient is found to have potassium of 6.2 BUN of 98 creatinine 14.7 and bicarb of 18 and glucose of 430 Past History Past Medical History: diabetes, ESRD Medications and Allergies Allergies Allergy/AdvReac Type Severity Reaction Status Date / Time diphenhydramine Allergy Hives Verified 07/16/19 10:58 [From Benadryl] seafood Allergy Shortness Uncoded 07/16/19 10:58 of Breath Home Medications Medication Instructions Recorded Confirmed Last Taken Type Docusate Sodium [Colace CAP] 100 mg PO BID #60 capsule 05/02/19 07/27/20 07/25/20 Rx Furosemide [Lasix TAB] 80 mg PO DAILY #30 tablet 05/02/19 07/27/20 07/26/20 Rx Albuterol Sulfate [Proventil Hfa] 2 puff IH Q4H PRN 05/14/19 07/27/20 11/15/19 History Active Meds: Active Medications Acetaminophen (Acetaminophen 325 Mg Tab) 650 mg PO Q4H PRN PRN Reason: Pain MILD(1-3)/Fever >100.5/COLINDRES Albuterol (Albuterol 8.5 Gm Mdi Inhalation) 2 puff IH Q4H PRN PRN Reason: sob Albuterol/Ipratropium (Ipratropium/Albuterol Sulfate 3 Ml Ampul.Neb) 1 ampul IH Q6HRT HANDY Docusate Sodium (Docusate Sodium 100 Mg Cap) 100 mg PO BID HANDY Famotidine (Famotidine 20 Mg Tab) 20 mg PO BID HANDY Heparin Sodium (Porcine) (Heparin 5,000 Unit/1 Ml Vial) 5,000 unit SUB-Q Q8HR HANDY Hydralazine HCl (Hydralazine 20 Mg/1 Ml Inj) 10 mg IV Q6H PRN PRN Reason: htn Ondansetron HCl (Ondansetron 4 Mg/2 Ml Inj) 4 mg IV Q8H PRN PRN Reason: Nausea And Vomiting Sodium Chloride (Sodium Chloride 0.9% 10 Ml Flush Syringe) 10 ml IV BID HANDY Sodium Chloride (Sodium Chloride 0.9% 10 Ml Flush Syringe) 10 ml IV PRN PRN PRN Reason: LINE FLUSH Sodium Polystyrene Sulfonate (Sodium Polystyrene 15 Gm/60 Ml Oral Liqd) 30 gm PO Q4H HANDY Stop: 08/04/20 03:01 Exam - Constitutional Vitals: Temp Pulse Resp BP Pulse Ox 98.1 F 95 H 18 180/80 99 08/03/20 19:50 08/03/20 19:50 08/03/20 19:50 08/03/20 19:50 08/03/20 19:50 General appearance: Present: no acute distress, well-nourished - Respiratory Respiratory: bilateral: diminished Results - Labs CBC & Chem 7: 08/03/20 19:15 08/03/20 19:15 Labs: Laboratory Last Values WBC 9.5 K/mm3 (4.5-11.0) 08/03/20 19:15 RBC 3.04 M/mm3 (3.65-5.03) L 08/03/20 19:15 Hgb 10.0 gm/dl (11.8-15.2) L 08/03/20 19:15 Hct 31.1 % (35.5-45.6) L 08/03/20 19:15 MCV 102 fl (84-94) H 08/03/20 19:15 MCH 33 pg (28-32) H 08/03/20 19:15 MCHC 32 % (32-34) 08/03/20 19:15 RDW 16.4 % (13.2-15.2) H 08/03/20 19:15 Plt Count 266 K/mm3 (140-440) 08/03/20 19:15 Add Manual Diff Complete 08/03/20 19:15 Total Counted 100 08/03/20 19:15 Seg Neutrophils % [place] Coverer Hand 08/03/20 19:15 Lymphocytes % (Manual) 3.0 % (13.4-35.0) L 08/03/20 19:15 Nucleated RBC % Not Reportable 08/03/20 19:15 Seg Neutrophils # Man 9.2 K/mm3 (1.8-7.7) H 08/03/20 19:15 Band Neutrophils # 0.0 K/mm3 08/03/20 19:15 Lymphocytes # (Manual) 0.3 K/mm3 (1.2-5.4) L 08/03/20 19:15 Abs React Lymphs (Man) 0.0 K/mm3 08/03/20 19:15 Monocytes # (Manual) 0.0 K/mm3 (0.0-0.8) 08/03/20 19:15 Eosinophils # (Manual) 0.0 K/mm3 (0.0-0.4) 08/03/20 19:15 Basophils # (Manual) 0.0 K/mm3 (0.0-0.1) 08/03/20 19:15 Metamyelocytes # 0.0 K/mm3 08/03/20 19:15 Myelocytes # 0.0 K/mm3 08/03/20 19:15 Promyelocytes # 0.0 K/mm3 08/03/20 19:15 Blast Cells # 0.0 K/mm3 08/03/20 19:15 WBC Morphology Not Reportable 08/03/20 19:15 Hypersegmented Neuts Not Reportable 08/03/20 19:15 Hyposegmented Neuts Not Reportable 08/03/20 19:15 Hypogranular Neuts Not Reportable 08/03/20 19:15 Smudge Cells Not Reportable 08/03/20 19:15 Toxic Granulation Not Reportable 08/03/20 19:15 Toxic Vacuolation Not Reportable 08/03/20 19:15 Dohle Bodies Not Reportable 08/03/20 19:15 Pelger-Huet Anomaly Not Reportable 08/03/20 19:15 Kaity Rods Not Reportable 08/03/20 19:15 Platelet Estimate Consistent w auto 08/03/20 19:15 Clumped Platelets Not Reportable 08/03/20 19:15 Plt Clumps, EDTA Not Reportable 08/03/20 19:15 Large Platelets Not Reportable 08/03/20 19:15 Giant Platelets Not Reportable 08/03/20 19:15 Platelet Satelliting Not Reportable 08/03/20 19:15 Plt Morphology Comment Not Reportable 08/03/20 19:15 RBC Morphology Normal 08/03/20 19:15 Dimorphic RBCs Not Reportable 08/03/20 19:15 Polychromasia Not Reportable 08/03/20 19:15 Hypochromasia Not Reportable 08/03/20 19:15 Poikilocytosis Not Reportable 08/03/20 19:15 Anisocytosis Not Reportable 08/03/20 19:15 Microcytosis Not Reportable 08/03/20 19:15 Macrocytosis Not Reportable 08/03/20 19:15 Spherocytes Not Reportable 08/03/20 19:15 Pappenheimer Bodies Not Reportable 08/03/20 19:15 Sickle Cells Not Reportable 08/03/20 19:15 Target Cells Not Reportable 08/03/20 19:15 Tear Drop Cells Not Reportable 08/03/20 19:15 Ovalocytes Not Reportable 08/03/20 19:15 Helmet Cells Not Reportable 08/03/20 19:15 [place] Bodies Not Reportable 08/03/20 19:15 [place] Rings Not Reportable 08/03/20 19:15 [place] Cells Not Reportable 08/03/20 19:15 Bite Cells Not Reportable 08/03/20 19:15 Crenated Cell Not Reportable 08/03/20 19:15 Elliptocytes Not Reportable 08/03/20 19:15 Acanthocytes (Spur) Not Reportable 08/03/20 19:15 Rouleaux Not Reportable 08/03/20 19:15 Hemoglobin C Crystals Not Reportable 08/03/20 19:15 Schistocytes Not Reportable 08/03/20 19:15 Malaria parasites Not Reportable 08/03/20 19:15 Be Bodies Not Reportable 08/03/20 19:15 Hem Pathologist Commnt No 08/03/20 19:15 Sodium 130 mmol/L (137-145) L 08/03/20 19:15 Potassium 6.0 mmol/L (3.6-5.0) H 08/03/20 19:15 Chloride 96.7 mmol/L (98-107) L 08/03/20 19:15 Carbon Dioxide 18 mmol/L (22-30) L 08/03/20 19:15 Anion Gap 21 mmol/L 08/03/20 19:15 BUN 98 mg/dL (9-20) H 08/03/20 19:15 Creatinine 14.7 mg/dL (0.8-1.3) H 08/03/20 19:15 Estimated GFR 4 ml/min 08/03/20 19:15 BUN/Creatinine Ratio 7 % 08/03/20 19:15 Glucose 430 mg/dL (75-100) H 08/03/20 19:15 Calcium 7.2 mg/dL (8.4-10.2) L 08/03/20 19:15 Assessment and Plan VTE prophylaxis?: Chemical Plan of care discussed with patient/family: Yes - Patient Problems (1) End-stage renal disease needing dialysis Current Visit: Yes Status: Acute Plan to address problem: Admit the patient to the medical telemetry. We will put the patient on renal diet. We will consult nephrology for hemodialysis in the morning. Patient has a permacath placed in the vascular surgeon's office. Recheck BMP in the morning we hold the Lasix (2) Acute hyperkalemia Current Visit: Yes Status: Acute Plan to address problem: Kayexalate 30 g p.o. every 4 hours x2 doses. We will do the hemodialysis as soon as possible. Recheck BMP in the morning. Nephrology consult (3) Hyperglycemia due to diabetes mellitus Current Visit: Yes Status: Acute Plan to address problem: We will put the patient on insulin sliding scale. Consult diabetic education and recheck BMP in the morning (4) DVT prophylaxis Current Visit: No Status: Acute Plan to address problem: Heparin 5000 units subcu every 8 hours for DVT prophylaxis and Pepcid 20 mg p.o. twice daily for GI prophylaxis. Patient is a full code
[2020-08-03] MEDS ORDERED: DEXTROSE 50% IN WATER (25GM) 50 ML SYRINGE IV PRN (22:12)
[2020-08-03] MEDS: SODIUM POLYSTYRENE 15 GM/60 ML ORAL LIQD PO SCH (23:00)
[2020-08-04] MEDS: IPRATROPIUM/ALBUTEROL SULFATE 3 ML AMPUL.NEB IH SCH ×3 (02:48→14:08)
[2020-08-04] MEDS: SODIUM POLYSTYRENE 15 GM/60 ML ORAL LIQD PO SCH (03:13)
[2020-08-04] MEDS: HEPARIN 5,000 UNIT/1 ML VIAL SUB-Q SCH ×2 (05:02→14:29)
--- NOTE | 2020-08-04 07:07 | Anesthesia Consultation ---
Anesthesia Consult and Med Hx Date of service: 08/04/20 - Airway Anesthetic Teeth Evaluation: Good ROM Head & Neck: Adequate Mental/Hyoid Distance: Adequate Mallampati Class: Class III Intubation Access Assessment: Possibly Difficult - Pulmonary Exam CTA: Yes - Cardiac Exam Cardiac Exam: RRR - Pre-Operative Health Status ASA Pre-Surgery Classification: ASA3 Proposed Anesthetic Plan: Local, MAC Nerve Block: Supraclavicular block - Pulmonary Hx Smoking: No Hx Asthma: Yes COPD: No Hx Pneumonia: No Hx Sleep Apnea: No - Cardiovascular System Hx Hypertension: Yes Hx Coronary Artery Disease: No Hx Heart Attack/AMI: No Hx Angina: No Hx Percutaneous Transluminal Coronary Angioplasty (PTCA): No Hx Pacemaker: No Hx Internal Defibrillator: No Hx Valvular Heart Disease: No Hx Heart Murmur: No Hx Peripheral Vascular Disease: No - Central Nervous System Hx Seizures: No CVA: No Hx Psychiatric Problems: No - Gastrointestinal Hx Ulcer: No Hx Gastroesophageal Reflux Disease: No - Endocrine Hx Renal Disease: No Hx End Stage Renal Disease: Yes Hx Cirrhosis: No Hx Non-Insulin Dependent Diabetes: Yes - Hematic Hx Anemia: Yes - Other Systems Hx Cancer: No Hx Obesity: Yes (BMI 44)
--- NOTE | 2020-08-04 07:08 | Anesthesia Day of Surgery ---
Anesthesia Day of Surgery - Day of Surgery Patient Examined: Yes Patient H&P Reviewed: Yes Patient is NPO: Yes Beta Blockers: No
[2020-08-04] MEDS ORDERED: SODIUM CHLORIDE 0.9% 250ML 250 ML ONE (07:13)
[2020-08-04] MEDS ORDERED: HEPARIN 10,000 UNITS/10 ML VIAL ONE (07:13)
[2020-08-04] MEDS ORDERED: LIDOCAINE 1%/EPINEPHRINE 1:100,000 VIAL (20 ML) INFILTRATI ONE (07:13)
[2020-08-04] MEDS ORDERED: SODIUM CHLORIDE 0.9% 500 ML 500 ML ONE (07:14)
[2020-08-04] MEDS ORDERED: SODIUM BICARBONATE 2 MEQ/2 ML SYRINGE ONE ×2 (07:14→07:16)
[2020-08-04] MEDS ORDERED: GELATIN SPONGE SIZE 100 TP ONE (07:14)
[2020-08-04] MEDS ORDERED: THROMBIN (RECOMBINANT) 5,000 UNIT VIAL TP ONE (07:14)
[2020-08-04] MEDS ORDERED: HYDROmorphone 1 MG/1 ML INJ ONE (07:24)
[2020-08-04] MEDS ORDERED: ONDANSETRON 4 MG/2 ML INJ ONE (07:24)
[2020-08-04] MEDS ORDERED: LIDOCAINE MPF (2%) 20 MG/1 ML VIAL 5 ML ONE (07:24)
[2020-08-04] MEDS ORDERED: SODIUM CHLORIDE 0.9% 1000 ML 1,000 ML ONE (07:24)
[2020-08-04] MEDS ORDERED: propofoL 200 MG/20 ML VIAL IV ONE ×2 (07:25→10:34)
[2020-08-04] MEDS ORDERED: BUPIVACAINE/PF (0.5%) 5 MG/1 ML 30 ML VIAL INFILTRATI ONE ×3 (07:32→10:41)
--- NOTE | 2020-08-04 07:44 | Consultation ---
History of Present Illness - Reason for Consult Consult date: 08/04/20 Complications of Dialysis Access Requesting physician: EPI ARTEAGA - History of Present Illness The patient is a 50-year-old male with a history of end-stage renal disease who presented to our office with a thrombosed left brachiocephalic arteriovenous fistula. He had a percutaneous mechanical thrombectomy performed however due to a large pseudoaneurysm, with a significant thrombus burden, flow in the fistula was unable to be adequately restored. He had a permacath placed in the office and then was sent to the emergency department for hyperkalemia. He denies any pain or swelling of the arm. He has no additional complaints at this time. Past History Past Medical History: diabetes, ESRD, hypertension, other (blindness, morbid obesity, asthma) Past Surgical History: Other (Creation of left brachiocephalic arteriovenous fistula, revision with elevation of left brachiocephalic arteriovenous fistula) Social history: no significant social history Family history: CAD, diabetes, hypertension Medications and Allergies Allergies Allergy/AdvReac Type Severity Reaction Status Date / Time diphenhydramine Allergy Hives Verified 07/16/19 10:58 [From Benadryl] seafood Allergy Shortness Uncoded 07/16/19 10:58 of Breath Home Medications Medication Instructions Recorded Confirmed Last Taken Type Docusate Sodium [Colace CAP] 100 mg PO BID #60 capsule 05/02/19 07/27/20 Rx Furosemide [Lasix TAB] 80 mg PO DAILY #30 tablet 05/02/19 07/27/20 07/26/20 Rx Albuterol Sulfate [Proventil Hfa] 2 puff IH Q4H PRN 05/14/19 07/27/20 11/15/19 History Active Meds: Active Medications Acetaminophen (Acetaminophen 325 Mg Tab) 650 mg PO Q4H PRN PRN Reason: Pain MILD(1-3)/Fever >100.5/COLINDRES Albuterol (Albuterol 2.5 Mg/3 Ml Nebu) 2.5 mg IH Q4HRT PRN PRN Reason: Shortness Of Breath Albuterol/Ipratropium (Ipratropium/Albuterol Sulfate 3 Ml Ampul.Neb) 1 ampul IH Q6HRT HANDY Last Admin: 08/04/20 02:48 Dose: Not Given Documented by: Dextrose (Dextrose 50% In Water (25gm) 50 Ml Syringe) 0 ml IV Q30MIN PRN; Protocol PRN Reason: Hypoglycemia Docusate Sodium (Docusate Sodium 100 Mg Cap) 100 mg PO BID HANDY Famotidine (Famotidine 20 Mg Tab) 20 mg PO QAM HANDY Heparin Sodium (Porcine) (Heparin 5,000 Unit/1 Ml Vial) 5,000 unit SUB-Q Q8HR [facility] Last Admin: 08/04/20 05:02 Dose: 5,000 unit Documented by: Hydralazine HCl (Hydralazine 20 Mg/1 Ml Inj) 10 mg IV Q6H PRN PRN Reason: htn Cefazolin Sodium 3 gm/ Sodium (Chloride) 100 mls @ 100 mls/30 min IV PREOP NR; Protocol Sodium Chloride (Nacl 0.9% 1000 Ml) 1,000 mls @ 42 mls/hr IV DIRECT HANDY Insulin Human Regular (Insulin Regular, Human 100 Units/1 Ml) 0 units SUB-Q ACHS HANDY; Protocol Ondansetron HCl (Ondansetron 4 Mg/2 Ml Inj) 4 mg IV Q8H PRN PRN Reason: Nausea And Vomiting Sodium Chloride (Sodium Chloride 0.9% 10 Ml Flush Syringe) 10 ml IV BID HANDY Sodium Chloride (Sodium Chloride 0.9% 10 Ml Flush Syringe) 10 ml IV PRN PRN PRN Reason: LINE FLUSH Review of Systems All systems: negative Exam - Constitutional Vitals: Temp Pulse Resp BP Pulse Ox 98 F 91 H 18 179/72 100 08/04/20 00:08 08/04/20 00:08 08/04/20 00:08 08/04/20 00:08 08/04/20 00:08 General appearance: Present: no acute distress - Neck Neck: Present: supple (Right IJ permacath in place without evidence of in fection) - Respiratory Respiratory effort: normal - Cardiovascular Rhythm: regular - Extremities Extremities: no ischemia, abnormal (Left arm AV fistula with pseudoaneurysm in the cannulation zone, the access is pulsatile near the arterial inflow and no thrill or pulses felt distally) - Abdominal General gastrointestinal: Present: soft Male genitourinary: Present: deferred - Rectal Rectal Exam: deferred Results - Labs CBC & Chem 7: 08/03/20 19:15 08/03/20 19:15 Labs: Abnormal lab results 08/03/20 08/03/20 08/04/20 Range/Units 19:15 19:15 07:12 RBC 3.04 L (3.65-5.03) M/mm3 Hgb 10.0 L (11.8-15.2) gm/dl Hct 31.1 L (35.5-45.6) % MCV 102 H (84-94) fl MCH 33 H (28-32) pg RDW 16.4 H (13.2-15.2) % Lymphocytes % (Manual) 3.0 L (13.4-35.0) % Seg Neutrophils # Man 9.2 H (1.8-7.7) K/mm3 Lymphocytes # (Manual) 0.3 L (1.2-5.4) K/mm3 Sodium 130 L (137-145) mmol/L Potassium 6.0 H (3.6-5.0) mmol/L Chloride 96.7 L (98-107) mmol/L Carbon Dioxide 18 L (22-30) mmol/L BUN 98 H (9-20) mg/dL Creatinine 14.7 H (0.8-1.3) mg/dL Glucose 430 H (75-100) mg/dL POC Glucose 122 H (70-105) mg/dL Calcium 7.2 L (8.4-10.2) mg/dL Assessment and Plan The patient is a 50-year-old male with a history of end-stage renal disease who has a thrombosed left brachiocephalic arteriovenous fistula secondary to a large pseudoaneurysm. The patient is in need of revision of the fistula with an open thrombectomy and resection of the pseudoaneurysm with an interposition graft. He had an initial potassium of 6.0 however at that time his glucose was elevated and he has since received insulin for the hyperglycemia as well as receiving Kayexalate so I suspect that the potassium has improved without the need for dialysis. If his potassium has indeed improved I will proceed with his operation. The patient has been given the risk, benefits, and alternative procedures and has elected to proceed.
[2020-08-04] MEDS ORDERED: SODIUM CHLORIDE 0.9% 1000 ML 1,000 ML IV SCH (07:45)
[2020-08-04 07:55] LABS: Basophils % (Auto) 0.3 % (0.0-1.8); Hematocrit 26.4 % (35.5-45.6); Hemoglobin 8.9 gm/dl (11.8-15.2); Lymphocytes % (Auto) 10.7 % (13.4-35.0); Mean Corpuscular HGB Conc 34 % (32-34); Mean Corpuscular Volume 99 fl (84-94); Monocytes # (Auto) 0.6 K/mm3 (0.0-0.8); Platelet Count 244 K/mm3 (140-440); Red Blood Count 2.67 M/mm3 (3.65-5.03); Red Cell Distribution Width 16.4 % (13.2-15.2)
[2020-08-04 08:14] LABS: Calcium 7.8 mg/dL (8.4-10.2)
[2020-08-04] MEDS ORDERED: MIDAZOLAM 2 MG/2 ML INJ ONE (08:39)
[2020-08-04] MEDS ORDERED: fentaNYL 100 MCG/2 ML INJ ONE (08:40)
[2020-08-04] MEDS ORDERED: LIDOCAINE (1%) 10 MG/1 ML VIAL 20 ML MDV ONE (08:43)
[2020-08-04] MEDS ORDERED: LIDOCAINE (2%) 20 MG/1 ML VIAL 20 ML MDV INFILTRATI ONE (08:44)
[2020-08-04] MEDS ORDERED: rifAMPin 600 MG VIAL ONE (08:52)
[2020-08-04] MEDS ORDERED: SODIUM CHLORIDE P/F VIAL 10 ML 10 ML ONE (08:52)
[2020-08-04] MEDS ORDERED: SODIUM CHLORIDE 0.9% 100 ML IV PRN (08:54)
[2020-08-04] MEDS ORDERED: EPOETIN ALFA-EPBX 10,000 UNIT/1 ML VIAL IV PRN (08:54)
--- NOTE | 2020-08-04 08:57 | Consultation ---
History of Present Illness - Reason for Consult Consult date: 08/04/20 end stage renal disease, hyperkalemia - History of Present Illness Mr. Skaggs is a 50yo who presented for outpatient management of malfunctioning AV access. Outpatient labs were reportedly notable for K 6.2. Permcath was placed and he was sent to the ED for hemodialysis. Upon arrival to ED, K 6.0. He received medical management overnight (kayexelate) Patient is seen on dialysis s/p revision of left UA AVF w/ open thrombectomy and excision of pseudoaneurysm and repair. He has no complaints Past History Past Medical History: diabetes, ESRD, hypertension, other (blindness, morbid obesity, asthma) Past Surgical History: Other (Creation of left brachiocephalic arteriovenous fistula, revision with elevation of left brachiocephalic arteriovenous fistula) Social history: no significant social history Family history: CAD, diabetes, hypertension Medications and Allergies Allergies Allergy/AdvReac Type Severity Reaction Status Date / Time diphenhydramine Allergy Hives Verified 07/16/19 10:58 [From Benadryl] seafood Allergy Shortness Uncoded 07/16/19 10:58 of Breath Home Medications Medication Instructions Recorded Confirmed Last Taken Type Docusate Sodium [Colace CAP] 100 mg PO BID #60 capsule 05/02/19 07/27/20 07/25/20 Rx Furosemide [Lasix TAB] 80 mg PO DAILY #30 tablet 05/02/19 07/27/20 07/26/20 Rx Albuterol Sulfate [Proventil Hfa] 2 puff IH Q4H PRN 05/14/19 07/27/20 11/15/19 History HYDROcodone/APAP 7.5-325 [[place] 1 each PO Q6HR PRN #40 tablet 08/04/20 Unknown Rx 7.5/325] Active Meds: Active Medications Acetaminophen (Acetaminophen 325 Mg Tab) 650 mg PO Q4H PRN PRN Reason: Pain MILD(1-3)/Fever >100.5/COLINDRES Albuterol (Albuterol 2.5 Mg/3 Ml Nebu) 2.5 mg IH Q4HRT PRN PRN Reason: Shortness Of Breath Albuterol/Ipratropium (Ipratropium/Albuterol Sulfate 3 Ml Ampul.Neb) 1 ampul IH Q6HRT HANDY Last Admin: 08/04/20 08:02 Dose: Not Given Documented by: Dextrose (Dextrose 50% In Water (25gm) 50 Ml Syringe) 0 ml IV Q30MIN PRN; Protocol PRN Reason: Hypoglycemia Docusate Sodium (Docusate Sodium 100 Mg Cap) 100 mg PO BID HANDY Famotidine (Famotidine 20 Mg Tab) 20 mg PO QAM [facility] Heparin Sodium (Porcine) (Heparin 5,000 Unit/1 Ml Vial) 5,000 unit SUB-Q Q8HR [facility] Last Admin: 08/04/20 05:02 Dose: 5,000 unit Documented by: Hydralazine HCl (Hydralazine 20 Mg/1 Ml Inj) 10 mg IV Q6H PRN PRN Reason: htn Cefazolin Sodium 3 gm/ Sodium (Chloride) 100 mls @ 100 mls/30 min IV PREOP NR; Protocol Stop: 08/04/20 18:00 Sodium Chloride (Nacl 0.9% 1000 Ml) 1,000 mls @ 42 mls/hr IV DIRECT HANDY Sodium Chloride (Nacl 0.9%) 100 mls @ 999 mls/hr IV LEONOR PRN PRN Reason: Hypotension Insulin Human Regular (Insulin Regular, Human 100 Units/1 Ml) 0 units SUB-Q ACHS [facility]; Protocol Ondansetron HCl (Ondansetron 4 Mg/2 Ml Inj) 4 mg IV Q8H PRN PRN Reason: Nausea And Vomiting Sodium Chloride (Sodium Chloride 0.9% 10 Ml Flush Syringe) 10 ml IV BID [facility] Sodium Chloride (Sodium Chloride 0.9% 10 Ml Flush Syringe) 10 ml IV PRN PRN PRN Reason: LINE FLUSH Review of Systems All systems: negative Exam - Vital Signs Vital signs: Vital Signs Temp Pulse Resp BP Pulse Ox 98.1 F 95 H 18 180/80 99 08/03/20 19:50 08/03/20 19:50 08/03/20 19:50 08/03/20 19:50 08/03/20 19:50 - General Appearance General appearance: well-developed, well-nourished EENT: ATNC Respiratory: Clear to Ascultation Heart: regular, S1S2 Gastrointestinal: Present: normal. Absent: tenderness, distended Integumentary: no rash, warm and dry Neurologic: alert and oriented x3 Psychiatric: cooperative Results - Lab Results 08/04/20 07:40 04/21/21 07:40 Most recent lab results Calcium 7.8 mg/dL (8.4-10.2) L 08/04/20 07:40 Assessment and Plan Impression: * End stage renal disease on hemodialysis * Hyperkalemia * Azotemia * Malfunctioning AVF --s/p revision of left brachiocephalic AVF w/ open thrombectomy, excision of pseudoaneurysm and repair * Type II DM * Hypertension Plan: * Hemodialysis today * UF as tolerated * Vascular surgery recommendations noted * Epogen TIW prn * Renal diet * Patient stable for d/c from a renal standpoint following dialysis today. He is advised to go to outpatient dialysis clinic tomorrow to resume TTS schedule
--- NOTE | 2020-08-04 09:23 | Progress Note ---
Assessment and Plan Assessment and plan: Thrombosed AV graft -Patient was evaluated by vascular surgery and will do revision of AV graft -Patient potassium was corrected this morning (1) End-stage renal disease needing dialysis Current Visit: Yes Status: Acute Plan to address problem: Admit the patient to the medical telemetry. We will put the patient on renal diet. We will consult nephrology for hemodialysis in the morning. Patient has a permacath placed in the vascular surgeon's office. Recheck BMP in the morning we hold the Lasix Nephrology is following (2) Acute hyperkalemia Current Visit: Yes Status: Acute Plan to address problem: Kayexalate 30 g p.o. every 4 hours x2 doses. We will do the hemodialysis as soon as possible. Recheck BMP in the morning. Nephrology consult 08/04/2020; potassium was normal this morning (3) Hyperglycemia due to diabetes mellitus Current Visit: Yes Status: Acute Plan to address problem: We will put the patient on insulin sliding scale. Consult diabetic education and recheck BMP in the morning Hypertension -Uncontrolled, will start on blood pressure medications if it is still uncontrol led after dialysis -Patient will have revision of AVG (4) DVT prophylaxis Current Visit: No Status: Acute Plan to address problem: Heparin 5000 units subcu every 8 hours for DVT prophylaxis and Pepcid 20 mg p.o. twice daily for GI prophylaxis. Patient is a full code Potassium corrected, blood pressure is corrected and patient can be discharged home after dialysis. History Interval history: Patient admitted for thrombosed AV graft Patient has hyperkalemia and corrected after Kayexalate I saw and evaluated the patient in PACU, patient said he is feeling good He does not want to stay in the hospital and wants to be discharged. Hospitalist Physical - Physical exam Narrative exam: Not in cardiopulmonary distress. The patient appeared well nourished and normally developed. Vital signs as documented. Head exam is unremarkable. No scleral icterus . Neck is without jugular venous distension, thyromegaly, or carotid bruits. Lungs are clear to auscultation. Cardiac exam reveals regular rate and Rhythm. Abdominal exam reveals normal bowel sounds, nontender, no organomegaly. Extremities are nonedematous and both femoral and pedal pulses are normal. 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 No focal weakness. - Constitutional Vitals: Temp Pulse Resp BP Pulse Ox 98 F 91 H 18 179/72 100 08/04/20 00:08 08/04/20 00:08 08/04/20 00:08 08/04/20 00:08 08/04/20 09:01 General appearance: Present: no acute distress Results - Labs CBC & Chem 7: 08/04/20 07:40 08/04/20 07:40 Labs: Laboratory Last Values WBC 9.6 K/mm3 (4.5-11.0) 08/04/20 07:40 RBC 2.67 M/mm3 (3.65-5.03) L 08/04/20 07:40 Hgb 8.9 gm/dl (11.8-15.2) L 08/04/20 07:40 Hct 26.4 % (35.5-45.6) L 08/04/20 07:40 MCV 99 fl (84-94) H 08/04/20 07:40 MCH 33 pg (28-32) H 08/04/20 07:40 MCHC 34 % (32-34) 08/04/20 07:40 RDW 16.4 % (13.2-15.2) H 08/04/20 07:40 Plt Count 244 K/mm3 (140-440) 08/04/20 07:40 Lymph % (Auto) 10.7 % (13.4-35.0) L 08/04/20 07:40 Storey % (Auto) 6.0 % (0.0-7.3) 08/04/20 07:40 Eos % (Auto) 0.0 % (0.0-4.3) 08/04/20 07:40 Baso % (Auto) 0.3 % (0.0-1.8) 08/04/20 07:40 Lymph # (Auto) 1.0 K/mm3 (1.2-5.4) L 08/04/20 07:40 Storey # (Auto) 0.6 K/mm3 (0.0-0.8) 08/04/20 07:40 Eos # (Auto) 0.0 K/mm3 (0.0-0.4) 08/04/20 07:40 Baso # (Auto) 0.0 K/mm3 (0.0-0.1) 08/04/20 07:40 Add Manual Diff Complete 08/03/20 19:15 Total Counted 100 08/03/20 19:15 Seg Neutrophils % 83.0 % (40.0-70.0) H 08/04/20 07:40 Lymphocytes % (Manual) 3.0 % (13.4-35.0) L 08/03/20 19:15 Nucleated RBC % Not Reportable 08/03/20 19:15 Seg Neutrophils # 8.0 K/mm3 (1.8-7.7) H 08/04/20 07:40 Seg Neutrophils # Man 9.2 K/mm3 (1.8-7.7) H 08/03/20 19:15 Band Neutrophils # 0.0 K/mm3 08/03/20 19:15 Lymphocytes # (Manual) 0.3 K/mm3 (1.2-5.4) L 08/03/20 19:15 Abs React Lymphs (Man) 0.0 K/mm3 08/03/20 19:15 Monocytes # (Manual) 0.0 K/mm3 (0.0-0.8) 08/03/20 19:15 Eosinophils # (Manual) 0.0 K/mm3 (0.0-0.4) 08/03/20 19:15 Basophils # (Manual) 0.0 K/mm3 (0.0-0.1) 08/03/20 19:15 Metamyelocytes # 0.0 K/mm3 08/03/20 19:15 Myelocytes # 0.0 K/mm3 08/03/20 19:15 Promyelocytes # 0.0 K/mm3 08/03/20 19:15 Blast Cells # 0.0 K/mm3 08/03/20 19:15 WBC Morphology Not Reportable 08/03/20 19:15 Hypersegmented Neuts Not Reportable 08/03/20 19:15 Hyposegmented Neuts Not Reportable 08/03/20 19:15 Hypogranular Neuts Not Reportable 08/03/20 19:15 Smudge Cells Not Reportable 08/03/20 19:15 Toxic Granulation Not Reportable 08/03/20 19:15 Toxic Vacuolation Not Reportable 08/03/20 19:15 Dohle Bodies Not Reportable 08/03/20 19:15 Pelger-Huet Anomaly Not Reportable 08/03/20 19:15 Kaity Rods Not Reportable 08/03/20 19:15 Platelet Estimate Consistent w auto 08/03/20 19:15 Clumped Platelets Not Reportable 08/03/20 19:15 Plt Clumps, EDTA Not Reportable 08/03/20 19:15 Large Platelets Not Reportable 08/03/20 19:15 Giant Platelets Not Reportable 08/03/20 19:15 Platelet Satelliting Not Reportable 08/03/20 19:15 Plt Morphology Comment Not Reportable 08/03/20 19:15 RBC Morphology Normal 08/03/20 19:15 Dimorphic RBCs Not Reportable 08/03/20 19:15 Polychromasia Not Reportable 08/03/20 19:15 Hypochromasia Not Reportable 08/03/20 19:15 Poikilocytosis Not Reportable 08/03/20 19:15 Anisocytosis Not Reportable 08/03/20 19:15 Microcytosis Not Reportable 08/03/20 19:15 Macrocytosis Not Reportable 08/03/20 19:15 Spherocytes Not Reportable 08/03/20 19:15 Pappenheimer Bodies Not Reportable 08/03/20 19:15 Sickle Cells Not Reportable 08/03/20 19:15 Target Cells Not Reportable 08/03/20 19:15 Tear Drop Cells Not Reportable 08/03/20 19:15 Ovalocytes Not Reportable 08/03/20 19:15 Helmet Cells Not Reportable 08/03/20 19:15 [place] Bodies Not Reportable 08/03/20 19:15 Wauseon Rings Not Reportable 08/03/20 19:15 Artemio Cells Not Reportable 08/03/20 19:15 Bite Cells Not Reportable 08/03/20 19:15 Crenated Cell Not Reportable 08/03/20 19:15 Elliptocytes Not Reportable 08/03/20 19:15 Acanthocytes (Spur) Not Reportable 08/03/20 19:15 Rouleaux Not Reportable 08/03/20 19:15 Hemoglobin C Crystals Not Reportable 08/03/20 19:15 Schistocytes Not Reportable 08/03/20 19:15 Malaria parasites Not Reportable 08/03/20 19:15 Be Bodies Not Reportable 08/03/20 19:15 Hem Pathologist Commnt No 08/03/20 19:15 Sodium 134 mmol/L (137-145) L 08/04/20 07:40 Potassium 4.5 mmol/L (3.6-5.0) D 08/04/20 07:40 Chloride 96.9 mmol/L (98-107) L 08/04/20 07:40 Carbon Dioxide 19 mmol/L (22-30) L 08/04/20 07:40 Anion Gap 23 mmol/L 08/04/20 07:40 BUN 101 mg/dL (9-20) H 08/04/20 07:40 Creatinine 15.7 mg/dL (0.8-1.3) H 08/04/20 07:40 Estimated GFR 4 ml/min 08/04/20 07:40 BUN/Creatinine Ratio 6 % 08/04/20 07:40 Glucose 116 mg/dL (75-100) H 08/04/20 07:40 POC Glucose 122 mg/dL (70-105) H 08/04/20 07:12 Calcium 7.8 mg/dL (8.4-10.2) L 08/04/20 07:40 Elizondo/IV: Voiding Method Urinal Active Medications - Current Medications Current Medications: Generic Name Dose Route Start Last Admin Trade Name Freq PRN Reason Stop Dose Admin Acetaminophen 650 mg 08/03/20 22:03 Acetaminophen 325 Mg Tab PO Q4H PRN Pain MILD(1-3)/Fever >100.5/COLINDRES Albuterol 2.5 mg 08/03/20 22:10 Albuterol 2.5 Mg/3 Ml Nebu IH Q4HRT PRN Shortness Of Breath Albuterol/Ipratropium 1 ampul 08/04/20 02:00 08/04/20 08:02 Ipratropium/Albuterol Sulfate 3 Ml Ampul.Neb IH Not Given Q6HRT HANDY Dextrose 0 ml 08/03/20 22:12 Dextrose 50% In Water (25gm) 50 Ml Syringe IV Q30MIN PRN Hypoglycemia Protocol Docusate Sodium 100 mg 08/04/20 10:00 Docusate Sodium 100 Mg Cap PO BID HANDY Famotidine 20 mg 08/04/20 10:00 Famotidine 20 Mg Tab PO QAM HANDY Heparin Sodium (Porcine) 5,000 unit 08/04/20 06:00 08/04/20 05:02 Heparin 5,000 Unit/1 Ml Vial SUB-Q 5,000 unit Q8HR HANDY Administration Hydralazine HCl 10 mg 08/03/20 22:05 Hydralazine 20 Mg/1 Ml Inj IV Q6H PRN htn Cefazolin Sodium 3 gm/ Sodium 100 mls @ 100 mls/30 min 08/04/20 07:33 Chloride IV 08/04/20 18:00 PREOP NR Protocol Sodium Chloride 1,000 mls @ 42 mls/hr 08/04/20 07:45 Nacl 0.9% 1000 Ml IV DIRECT HANDY Sodium Chloride 100 mls @ 999 mls/hr 08/04/20 08:54 Nacl 0.9% IV LEONOR PRN Hypotension Insulin Human Regular 0 units 08/04/20 07:30 Insulin Regular, Human 100 Units/1 Ml SUB-Q ACHS HANDY Protocol Ondansetron HCl 4 mg 08/03/20 22:03 Ondansetron 4 Mg/2 Ml Inj IV Q8H PRN Nausea And Vomiting Sodium Chloride 10 ml 08/04/20 10:00 Sodium Chloride 0.9% 10 Ml Flush Syringe IV BID HANDY Sodium Chloride 10 ml 08/03/20 22:03 Sodium Chloride 0.9% 10 Ml Flush Syringe IV PRN PRN LINE FLUSH
[2020-08-04] MEDS ORDERED: KETAMINE/STERILE WATER 50 MG/ML SYRINGE ONE (09:49)
[2020-08-04] MEDS ORDERED: DOCUSATE SODIUM 100 MG CAP PO SCH (10:00)
[2020-08-04] MEDS ORDERED: FAMOTIDINE 20 MG TAB PO SCH (10:00)
[2020-08-04] MEDS: INSULIN REGULAR, HUMAN 100 UNITS/1 ML SUB-Q SCH ×3 (10:32→18:00)
[2020-08-04] MEDS ORDERED: HEPARIN 10,000 UNITS/10 ML VIAL IV ONE (10:39)
[2020-08-04] MEDS ORDERED: SODIUM CHLORIDE 0.9% IRR 1,500 ML BOTTLE IR ONE (10:40)
[2020-08-04] MEDS ORDERED: SODIUM CHLORIDE 0.9% 250 ML IVPB IR ONE (10:41)
[2020-08-04] MEDS ORDERED: rifAMPin 600 MG VIAL IV ONE (10:42)
[2020-08-04] MEDS ORDERED: SODIUM CHLORIDE 0.9% P/F 10 ML VIAL IV ONE (10:43)
--- NOTE | 2020-08-04 13:15 | Operative Report ---
Operative Report Operative Report: Date of Procedure: 08/04/2020 Pre-operative Diagnosis: Complications of Dialysis Access Post-operative Diagnosis: Same Procedure(s): 1. Revision of Left Brachiocephalic Arteriovenous Fistula With Open Thrombectomy with 4 Beatris and 6 Beatris, Excision of Pseudoaneurysm and Repair with Interposition 7 mm Bovine Artegraft 2. Left Arm Fistulogram With Central Venogram 3. Angioplasty and Stent of Left Arm AV Fistula with 8 x 100 Covera Stent Graft And 8 x 40 Conquest Balloon 4. Radiologic Supervision with Interpretation Surgeon: Dhruv Kelly M.D. Director Of Agriculture: None Anesthesia: Regional/MAC EBL: 100 mL Counts: Correct Complications: None Condition: Stable Findings: There was a palpable thrill in the access at the completion of the case. Specimen: Left arm pseudoaneurysm was sent to pathology. Indication: The patient is a 50-year-old male with a history of end-stage renal disease who presented with a thrombosed left arm AV fistula. There was an attempt at nondenominational of flow with a percutaneous mechanical thrombectomy however the patient has significant outflow stenosis as well as a large pseudoaneurysm that prevented success. He is in need of a revision of the fistula as well as an open thrombectomy. He was given the risk, benefits, and alternative procedures and consented to the procedure. Angiographic Findings: The diagnostic fistulogram revealed the interposition graft was patent however there was a disruption of the cephalic vein near the cephalic arch with extrava sation of contrast. The distal cephalic arch was stenotic with approximately 75% stenosis and the proximal arch was patent without flow-limiting stenosis. The central venous system was patent without evidence of flow-limiting stenosis. After intervention the fistula was patent with less than 10% residual stenosis and no further extravasation of contrast noted. Description of Procedure: Prior to proceeding to the operating room the patient had a regional block performed of his left upper extremity. The patient was then transported to the operating room and laid in supine position. After he was adequately sedated his left arm was prepped and draped in normal sterile fashion. A longitudinal incision was then created in the upper arm, just lateral to the fistula and through a previous incision used to elevate the fistula, and carried out to the fistula using sharp dissection. The arterial inflow of the fistula was dissected circumferentially controlled with a vessel loop. I then dissected the normal portion of the venous outflow of the fistula, circumferentially, and controlled with a vessel loop. The pseudoaneurysm was significantly inflamed and scarred to the surrounding soft tissue. I was able to use curved Mayos to eventually dissect the pseudoaneurysmal portion of the fistula from the surrounding soft tissue. Once I had the entire segment of fistula dissected circumferentially I controlled the arterial inflow as well as the venous outflow with angled DeBakey clamps and then transected the pseudoaneurysm and passed this off as a specimen. I then used a Marie-Wick tunneler to tunnel from the arterial inflow towards the venous outflow on the lateral aspect of the incision. I used a 2-0 silk tie to connect the 7 mm Bovine Artegraft to the Marie-Wick tunneler and then pulled it through the tunnel. I infused with heparinized saline to confirm that it was not kinked or twisted. I then beveled the end of the Artegraft as well as the arterial inflow the fistula in preparation of the anastomosis. I used a 6 Beatris and performed thrombectomy of the arterial inflow until I retrieved thrombus and had audible bleeding from the arterial inflow. I then reclamped the arterial portion of the fistula and then used a 6 Beatris to perform thrombectomy of the venous outflow of the fistula. I retrieved some thrombus and then had venous backbleeding. I flushed the venous outflow with heparinized saline and reclamped the fistula. I created an end-to-end anastomosis, between the arterial inflow of the fistula using and the graft, using two 5-0 Prolene's in running fashion however upon palpating the arterial inflow I realized it was no longer palpable pulse so I did not complete the anastomosis so that I could perform a thrombectomy prior to releasing the clamps on the graft. I cut the graft to length and beveled the venous outflow and and then beveled the venous portion of the fistula. I created an end-to-end anastomosis using two 5-0 Prolene's in running fashion. Prior to completing the anastomosis prior to completing the anastomosis I flashed the venous outflow and and reclamped and then flushed the anastomosis and then completed it. I then passed a 4 Beatris through the arterial inflow and after retrieving some thrombus had adequate arterial bleeding so I reclamped the fistula and then completed the anastomosis. I released all clamps allowing flow into the graft which had pulsatile flow. I then noted that there was a hematoma forming near the shoulder. I held pressure on the shoulder and then decided to perform a fistulogram. I used a 21-gauge micropuncture needle to access the graft, just distal to the arterial anastomosis. I then advanced a 0.018 micropuncture wire into the graft and after removing the needle advanced a micropuncture sheath by Seldinger technique. I remove the wire and inner cannula and then advanced a 0.035 sheath J-wire into the graft. I exchanged the micropuncture sheath for a 9 Hungarian sheath by Seldinger technique. I then performed a fistulogram demonstrating the area of extravasation in the cephalic vein. I used a vertebral catheter and 0.035 floppy Glidewire and was eventually able to cross the area of disruption in the fistula. I advanced the catheter and wire into the central venous system and performed a central venogram with the previously described findings of no flow-limiting stenosis. I then advanced a 0.035 J-wire into the central venous system and after removing the vertebral catheter advanced a 8 x 100 Covera Stent Graft into the cephalic vein and deployed it. I postdilated the stent graft with an 8 x 40 Conquest Balloon with a result of less than 10% residual stenosis and no further extravasation of contrast. At this point I removed the balloon, wire, and the sheath and used a 6-0 Prolene in U stitch fashion to close the entry site in the graft. Hemostasis within the wound was achieved with a combination of quick clot and cautery. Once hemostasis was achieved I closed the wound in 2 layers using a 3-0 Vicryl running fashion the deep dermal layer, a 4-0 Monocryl in running fashion the subcuticular layer, and dressed the skin with Dermabond. The patient tolerated the procedure well. All sponge, needle, and instrument counts were correct. The patient was taken to the recovery area in stable condition.
--- NOTE | 2020-08-04 13:36 | Discharge Summary ---
Providers - Providers Date of Admission: 08/04/20 09:21 Date of discharge: 08/04/20 Attending physician: PAYTON BULLOCK MD 08/03/20 19:07 Consult to Physician [CONS] Stat Comment: Consulting Provider: NAIMA VASQUEZ Physician Instructions: Reason For Exam: esrd 08/03/20 19:09 Consult to Physician [CONS] Stat Comment: Consulting Provider: SAMI EGAN Physician Instructions: Reason For Exam: av fistula evaluation 08/03/20 22:12 Consult to Dietitian/Nutrition [CONS] Routine Physician Instructions: Reason For Exam: Reason for Consult: Diet education Primary care physician: RAILROAD SIGNAL AND SWITCH OPERATOR Hospitalization Reason for admission: Hyperkalemia, malfunction of AV graft Condition: Stable Hospital course: History of present illness: 50 years old male with history of end-stage renal disease on hemodialysis on Sunday and Sunday was sent from Dr. Egan, vascular surgeon for admission for emergency dialysis. Patient had a permacath placed in his office. Patient denied any symptom at this moment. In the ER patient is found to have potassium of 6.2 BUN of 98 creatinine 14.7 and bicarb of 18 and glucose of 430 Hospital course Thrombosed AV graft -Patient was evaluated by vascular surgery and will do revision of AV graft -Patient potassium was corrected this morning (1) End-stage renal disease needing dialysis Current Visit: Yes Status: Acute Plan to address problem: Admit the patient to the medical telemetry. We will put the patient on renal diet. We will consult nephrology for hemodialysis in the morning. Patient has a permacath placed in the vascular surgeon's office. Recheck BMP in the morning we hold the Lasix Nephrology is following (2) Acute hyperkalemia Current Visit: Yes Status: Acute Plan to address problem: Kayexalate 30 g p.o. every 4 hours x2 doses. We will do the hemodialysis as soon as possible. Recheck BMP in the morning. Nephrology consult 08/04/2020; potassium was normal this morning (3) Hyperglycemia due to diabetes mellitus Current Visit: Yes Status: Acute Plan to address problem: We will put the patient on insulin sliding scale. Consult diabetic education and recheck BMP in the morning Hypertension -Uncontrolled, will start on blood pressure medications if it is still uncontrolled after dialysis -Patient will have revision of AVG (4) DVT prophylaxis Current Visit: No Status: Acute Plan to address problem: Heparin 5000 units subcu every 8 hours for DVT prophylaxis and Pepcid 20 mg p.o. twice daily for GI prophylaxis. Patient is a full code Patient was seen in PACU and he said he is feeling okay. Potassium corrected, blood pressure is corrected and patient can be discharged home after dialysis. Discussed with vascular surgery and he is okay with the discharge. Patient wants to go home. Disposition: DC-01 TO HOME OR SELFCARE Final Discharge Diagnosis (Prints w/discharge instructions): Malfunctioning AV graft. Hyperkalemia. Hypertension Time spent for discharge: 25 minutes - Discharge Diagnoses (1) Acute hyperkalemia Status: Acute (2) End-stage renal disease needing dialysis Status: Acute Core Measure Documentation - Palliative Care Palliative Care/ Comfort Measures: Not Applicable - Core Measures Any of the following diagnoses?: none Exam - Physical Exam Narrative exam: Not in cardiopulmonary distress. The patient is obese. Vital signs as documented. Head exam is unremarkable. No scleral icterus . Neck is without jugular venous distension, thyromegaly, or carotid bruits. Lungs are clear to auscultation. Cardiac exam reveals regular rate and Rhythm. Abdominal exam reveals normal bowel sounds, nontender, no organomegaly. Extremities are nonedematous and both femoral and pedal pulses are normal. RADIOGRAPHIC TECHNOLOGIST: Alert and oriented 3. No focal weakness. - Constitutional Vitals: Temp Pulse Resp BP Pulse Ox 98.0 F 88 14 138/63 97 08/04/20 12:55 08/04/20 12:55 08/04/20 12:55 08/04/20 12:55 08/04/20 12:55 Plan Activity: no restrictions Weight Bearing Status: Full Weight Bearing Diet: renal Follow up with: PRIMARY CAREMD [Primary Care Provider] - 3-5 Days Prescriptions: HYDROcodone/APAP 7.5-325 [[place] 7.5/325] 1 each PO Q6HR PRN #40 tablet PRN Reason: Pain
--- NOTE | 2020-08-04 14:12 | XRay Report ---
Left humerus one view INDICATION: Medial canal FINDINGS: Basilar stent is noted in the upper arm. No radiopaque needle is seen. Signer Name: Tee Vyas MD Signed: 08/04/2020 1:23 PM Workstation Name: [id number]
--- NOTE | 2020-08-04 15:36 | Post Anesthesia Evaluation ---
- Post Anesthesia Evaluation Patient Participated: Yes Airway Patent: Yes Stable Respiratory Function: Yes Nausea/Vomiting: No Temp > 96.8F: Yes Pain Manageable: Yes Adequeate Hydration: Yes Anesthesia Complications: No Block Receding Appropriately: Yes Patient on Ventilator: No
[2020-08-04 15:58] LABS: Hepatitis B Surface Antigen Non-Reactive (Negative); Hepatitis C Virus Antibody Non-Reactive (NonReactive)
[2020-08-04 18:40] VITALS: BP 112/67
--- NOTE | 2020-08-05 09:33 | Electrocardiograph Report ---
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
== END 2020-08-04 19:50 | disposition home or self-care (01) ==
LOC: ED 18:05 → 3A 22:03 → OBSVTOIN 08-04 09:21 → INTOOBSV 08-04 09:21
PROVIDERS: ADMIT Hospitalist; ATTEND Internal Medicine
DX: I12.0 Hypertensive chronic kidney disease with stage 5 chronic kidney disease or end stage renal disease (principal); N18.6 End stage renal disease; E87.5 Hyperkalemia; E87.2 Acidosis; E11.65 Type 2 diabetes mellitus with hyperglycemia; J45.909 Unspecified asthma, uncomplicated; H54.7 Unspecified visual loss; E66.01 Morbid (severe) obesity due to excess calories; T82.590A Other mechanical complication of surgically created arteriovenous fistula, initial encounter; R79.89 Other specified abnormal findings of blood chemistry; Z79.4 Long term (current) use of insulin; Z99.2 Dependence on renal dialysis; Z98.890 Other specified postprocedural states; Z68.42 Body mass index [BMI] 45.0-49.9, adult
CPT/HCPCS: 36415; 36833; 37238; 64450; 73060; 80048; 80074; 82962; 85025; 88304; 93005; 94640; 94644; 96361; 96365; 96366; 96372; 96375; 99291; A4649; C1725; C1768; C1769; C1874; C1894; G0257; G0378; J0885; J1170; J1644; J2250; J2405; J2704; J3010; J3490; J7030; J7040; J7050; Q9966; 85007; 88311; J1815

== ENCOUNTER 2020-09-22 09:59 | Outpatient (CLI) | payer MEDICARE | END 2020-09-22 10:00 | disposition home or self-care (01) | LOC: MRI 09:59 | PROVIDERS: ATTEND Urology | DX: E29.1 Testicular hypofunction (principal) | CPT/HCPCS: 70551 ==

== ENCOUNTER 2020-11-16 05:52 | Day surgery (SDC) | payer MEDICARE ==
[2020-11-16] MEDS ORDERED: SODIUM CHLORIDE 0.9% 1000 ML 1,000 ML IV SCH (06:15)
[2020-11-16] MEDS ORDERED: WATER FOR IRRIG STERILE 250 ML BOTTLE IR ONE (07:26)
--- NOTE | 2020-11-16 07:29 | Anesthesia Consultation ---
Anesthesia Consult and Med Hx Date of service: 11/16/20 - Airway Anesthetic Teeth Evaluation: Poor (some broken teeth) ROM Head & Neck: Adequate Mental/Hyoid Distance: Adequate Mallampati Class: Class II Intubation Access Assessment: Probably Good - Pre-Operative Health Status ASA Pre-Surgery Classification: ASA3 Proposed Anesthetic Plan: MAC - Pulmonary Hx Smoking: No Hx Asthma: Yes Hx Respiratory Symptoms: No COPD: No Hx Pneumonia: No Hx Sleep Apnea: No - Cardiovascular System Hx Hypertension: Yes Hx Coronary Artery Disease: No Hx Heart Attack/AMI: No Hx Angina: No Hx Percutaneous Transluminal Coronary Angioplasty (PTCA): No Hx Cardia Arrhythmia: No Hx Pacemaker: No Hx Internal Defibrillator: No Hx Valvular Heart Disease: No Hx Heart Murmur: No Hx Peripheral Vascular Disease: No - Central Nervous System Hx Seizures: No CVA: No Hx Psychiatric Problems: No - Gastrointestinal Hx Ulcer: No Hx Gastroesophageal Reflux Disease: No - Endocrine Hx Renal Disease: No Hx End Stage Renal Disease: Yes () Hx Cirrhosis: No Hx Liver Disease: No Hx Non-Insulin Dependent Diabetes: Yes Hx Thyroid Disease: No - Hematic Hx Anemia: Yes - Other Systems Hx Cancer: No Hx Obesity: Yes (BMI 48.2)
--- NOTE | 2020-11-16 07:30 | Anesthesia Day of Surgery ---
Anesthesia Day of Surgery - Day of Surgery Patient Examined: Yes Patient H&P Reviewed: Yes Patient is NPO: Yes
[2020-11-16] MEDS ORDERED: propofoL 200 MG/20 ML VIAL IV ONE (08:49)
[2020-11-16] MEDS ORDERED: LIDOCAINE MPF (2%) 20 MG/1 ML VIAL 5 ML ONE (08:49)
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
--- NOTE | 2020-11-16 09:19 | Operative Report ---
Operative Report Operative Report: Date of procedure: 11/16/2020 Procedure: Esophagogastroduodenoscopy with biopsies for H. pylori Preprocedure diagnosis: Anemia with suspected chronic blood loss Post procedure diagnosis: Mild to moderate erosive gastritis Endoscopist: Dr. Bryan Anesthesia: Monitored anesthesia care per anesthesia department Medications: Propofol per anesthesia Estimated blood loss: 0 After careful discussion of the nature and purpose of the procedure as well as details the technique risks benefits and alternatives consent was obtained. The patient was placed in the left lateral decubitus position and medicated per anesthesia. The tip of the [employer] EQ 570 video scope was passed per orum under direct vision into the esophagus and advanced into the stomach and descending duodenum. The descending duodenum the duodenal bulb and pylorus were symmetrical and normal. The scope was withdrawn into the stomach and the stomach then gently insufflated with air. The antrum was normal revealed a few punctate erosions. Biopsies were taken for H. pylori. The stomach was further insufflated and the scope was then retroflexed and partially withdrawn. There were multiple scattered erosions in the body of the stomach. The stomach was easily distensible. The cardia and fundus of the stomach were within normal limits and easily distensible.The scope was then withdrawn in the forward position. The esophagogastric junction was at 40 cm. The esophageal body was normal throughout. The procedure was was well tolerated and the patient was observed in recovery. Impressions: Mild to moderate erosive gastritis. No deep ulcers. Plan: Await results of biopsies. The patient will call for the results and further discussion of therapy in approximately 1 week. Electronically signed: Geovanni Bryan MD
[2020-11-16 09:59] VITALS: BP 124/62
== END 2020-11-16 09:40 | disposition home or self-care (01) ==
LOC: GIO 05:52
PROVIDERS: ATTEND Internal Medicine Gastroenterology
DX: D50.9 Iron deficiency anemia, unspecified (principal); K31.89 Other diseases of stomach and duodenum; I12.0 Hypertensive chronic kidney disease with stage 5 chronic kidney disease or end stage renal disease; N18.6 End stage renal disease; K29.70 Gastritis, unspecified, without bleeding; E11.22 Type 2 diabetes mellitus with diabetic chronic kidney disease; E11.65 Type 2 diabetes mellitus with hyperglycemia; E66.2 Morbid (severe) obesity with alveolar hypoventilation; J45.909 Unspecified asthma, uncomplicated; Z91.013 Allergy to seafood; Z88.8 Allergy status to other drugs, medicaments and biological substances; Z79.899 Other long term (current) drug therapy; Z79.84 Long term (current) use of oral hypoglycemic drugs; Z99.2 Dependence on renal dialysis; Z98.890 Other specified postprocedural states; Z82.49 Family history of ischemic heart disease and other diseases of the circulatory system
CPT/HCPCS: 43239; 82962; 88305; 88342; J2704; J7030

== ENCOUNTER 2021-02-07 08:07 | Outpatient (CLI) | payer MEDICARE ==
[2021-02-07] MEDS ORDERED: LIDOCAINE (4%) 40 MG/ML TOPICAL SOLN 50 ML BOTTLE TP SCH (09:00)
[2021-02-07] MEDS ORDERED: SILVER NITRATE APPLICATOR 1 EA TP ONE (09:28)
[2021-02-07] MEDS ORDERED: SODIUM CHLORIDE 0.9% IRR 500 ML BOTTLE IR ONE (10:11)
== END 2021-02-07 08:08 | disposition home or self-care (01) ==
LOC: WOUND 08:07
PROVIDERS: ATTEND Surgery
DX: E11.621 Type 2 diabetes mellitus with foot ulcer (principal); L89.622 Pressure ulcer of left heel, stage 2; L97.422 Non-pressure chronic ulcer of left heel and midfoot with fat layer exposed; L02.214 Cutaneous abscess of groin; S31.30XA Unspecified open wound of scrotum and testes, initial encounter; E11.22 Type 2 diabetes mellitus with diabetic chronic kidney disease; N18.9 Chronic kidney disease, unspecified; H54.40 Blindness, one eye, unspecified eye; N49.3 Fournier gangrene; J45.909 Unspecified asthma, uncomplicated; E66.01 Morbid (severe) obesity due to excess calories; Z68.42 Body mass index [BMI] 45.0-49.9, adult; X58.XXXA Exposure to other specified factors, initial encounter; Y93.89 Activity, other specified; Y92.89 Other specified places as the place of occurrence of the external cause; Y99.8 Other external cause status
CPT/HCPCS: 11042; 11045; G0463; 99214

== ENCOUNTER 2021-02-14 07:29 | Outpatient (CLI) | payer MEDICARE ==
--- NOTE | 2021-02-14 10:17 | Vascular Lab Report ---
DUPLEX DOPPLER LOWER EXTREMITY ARTERIAL, BILATERAL INDICATION: LEFT HEEL WOUND L89.622. History of diabetes, hypertension, end-stage renal disease on hemodialysis , morbid obesity TECHNIQUE: Arterial duplex examination of both lower extremities performed using B-mode, color flow and spectral Doppler assessment. FINDINGS: RIGHT: Common Femoral Artery: PSV 127 cm/sec. Triphasic waveform. Proximal SFA: PSV 139 cm/sec. Triphasic waveform. Mid SFA: PSV 114 cm/sec. Triphasic waveform. Distal SFA: PSV 91 cm/sec. Triphasic waveform. Popliteal artery: PSV 82 cm/sec. Triphasic waveform. Posterior tibial artery: PSV 93 cm/sec. Triphasic waveform. Anterior tibial artery: PSV 60 cm/sec. Triphasic waveform. Dorsalis Pedis Artery: PSV 128 cm/sec. Triphasic waveform. LEFT: Common Femoral Artery: PSV 135 cm/sec. Triphasic waveform. Proximal SFA: PSV 119 cm/sec. Triphasic waveform. Mid SFA: PSV 111 cm/sec. Triphasic waveform. Distal SFA: PSV 110 cm/sec. Triphasic waveform. Popliteal artery: PSV 77 cm/sec. Triphasic waveform. Posterior tibial artery: PSV 44 cm/sec. Monophasic waveform. Anterior tibial artery: PSV 50 cm/sec. Monophasic waveform. Dorsalis Pedis Artery: PSV 62 cm/sec. Monophasic waveform. IMPRESSION: Abnormal monophasic waveforms in the left posterior tibial, anterior tibial and dorsalis pedis arteri es as described. Doppler Waveform: * Triphasic is normal. * Biphasic is abnormal if clear transition from triphasic signal along vascular tree. * Monophasic is abnormal. Signer Name: Josse Schneider Jr, MD Signed: 02/14/2021 10:12 AM Workstation Name: [id number]
== END 2021-02-14 07:30 | disposition home or self-care (01) ==
LOC: VAS 07:29
PROVIDERS: ATTEND Surgery
DX: I12.0 Hypertensive chronic kidney disease with stage 5 chronic kidney disease or end stage renal disease (principal); N18.6 End stage renal disease; L89.622 Pressure ulcer of left heel, stage 2; Z86.39 Personal history of other endocrine, nutritional and metabolic disease
CPT/HCPCS: 93925

== ENCOUNTER 2021-02-28 09:00 | Outpatient (CLI) | payer MEDICARE ==
[2021-02-28] MEDS ORDERED: LIDOCAINE (4%) 40 MG/ML TOPICAL SOLN 50 ML BOTTLE TP SCH (11:00)
== END 2021-02-28 09:01 | disposition home or self-care (01) ==
LOC: WOUND 09:00
PROVIDERS: ATTEND Surgery
DX: E11.621 Type 2 diabetes mellitus with foot ulcer (principal); L89.622 Pressure ulcer of left heel, stage 2; L97.422 Non-pressure chronic ulcer of left heel and midfoot with fat layer exposed; L02.214 Cutaneous abscess of groin; S31.30XD Unspecified open wound of scrotum and testes, subsequent encounter; E11.22 Type 2 diabetes mellitus with diabetic chronic kidney disease; N18.9 Chronic kidney disease, unspecified; H54.40 Blindness, one eye, unspecified eye; N49.3 Fournier gangrene; J45.909 Unspecified asthma, uncomplicated; E66.01 Morbid (severe) obesity due to excess calories; Z68.42 Body mass index [BMI] 45.0-49.9, adult; X58.XXXD Exposure to other specified factors, subsequent encounter
CPT/HCPCS: 17250

== ENCOUNTER 2021-03-28 09:25 | Outpatient (CLI) | payer MEDICARE ==
[2021-03-28] MEDS ORDERED: SILVER NITRATE APPLICATOR 1 EA TP ONE ×2 (10:06→11:58)
[2021-03-28] MEDS ORDERED: LIDOCAINE (4%) 40 MG/ML TOPICAL SOLN 50 ML BOTTLE TP ONE (10:06)
[2021-03-28] MEDS ORDERED: LIDOCAINE-MPF (1%) 10 MG/1 ML VIAL 5 ML INFILTRATI ONE (10:39)
[2021-03-28] MEDS ORDERED: LIDOCAINE (1%) 10 MG/1 ML VIAL 20 ML MDV INFILTRATI ONE (10:50)
== END 2021-03-28 09:26 | disposition home or self-care (01) ==
LOC: WOUND 09:25
PROVIDERS: ATTEND Surgery
DX: L89.622 Pressure ulcer of left heel, stage 2 (principal); L97.422 Non-pressure chronic ulcer of left heel and midfoot with fat layer exposed; L02.214 Cutaneous abscess of groin; S31.30XD Unspecified open wound of scrotum and testes, subsequent encounter; E11.22 Type 2 diabetes mellitus with diabetic chronic kidney disease; N18.9 Chronic kidney disease, unspecified; H54.40 Blindness, one eye, unspecified eye; N49.3 Fournier gangrene; J45.909 Unspecified asthma, uncomplicated; E66.01 Morbid (severe) obesity due to excess calories; Z68.42 Body mass index [BMI] 45.0-49.9, adult; X58.XXXD Exposure to other specified factors, subsequent encounter
CPT/HCPCS: 10060; 11042; 17250; 87116; J3490

== ENCOUNTER 2021-04-04 11:12 | Outpatient (CLI) | payer MEDICARE ==
[2021-04-04] MEDS ORDERED: LIDOCAINE (4%) 40 MG/ML TOPICAL SOLN 50 ML BOTTLE TP ONE (12:03)
== END 2021-04-04 11:13 | disposition home or self-care (01) ==
LOC: WOUND 11:12
PROVIDERS: ATTEND Surgery
DX: L89.622 Pressure ulcer of left heel, stage 2 (principal); L97.422 Non-pressure chronic ulcer of left heel and midfoot with fat layer exposed; L02.214 Cutaneous abscess of groin; S31.30XD Unspecified open wound of scrotum and testes, subsequent encounter; E11.22 Type 2 diabetes mellitus with diabetic chronic kidney disease; N18.9 Chronic kidney disease, unspecified; H54.40 Blindness, one eye, unspecified eye; N49.3 Fournier gangrene; J45.909 Unspecified asthma, uncomplicated; E66.01 Morbid (severe) obesity due to excess calories; Z68.42 Body mass index [BMI] 45.0-49.9, adult; X58.XXXD Exposure to other specified factors, subsequent encounter
CPT/HCPCS: 17250

== ENCOUNTER 2021-05-02 08:58 | Outpatient (CLI) | payer MEDICARE ==
[2021-05-02] MEDS ORDERED: LIDOCAINE (4%) 40 MG/ML TOPICAL SOLN 50 ML BOTTLE TP ONE (09:02)
== END 2021-05-02 08:59 | disposition home or self-care (01) ==
LOC: WOUND 08:58
PROVIDERS: ATTEND Surgery
DX: E11.621 Type 2 diabetes mellitus with foot ulcer (principal); L89.622 Pressure ulcer of left heel, stage 2; L97.422 Non-pressure chronic ulcer of left heel and midfoot with fat layer exposed; L02.214 Cutaneous abscess of groin; L02.31 Cutaneous abscess of buttock; S31.30XD Unspecified open wound of scrotum and testes, subsequent encounter; E11.22 Type 2 diabetes mellitus with diabetic chronic kidney disease; N18.9 Chronic kidney disease, unspecified; L84 Corns and callosities; H54.40 Blindness, one eye, unspecified eye; N49.3 Fournier gangrene; J45.909 Unspecified asthma, uncomplicated; E66.01 Morbid (severe) obesity due to excess calories; Z68.42 Body mass index [BMI] 45.0-49.9, adult; X58.XXXD Exposure to other specified factors, subsequent encounter

== ENCOUNTER 2021-05-16 09:06 | Outpatient (CLI) | payer MEDICARE ==
[2021-05-16] MEDS ORDERED: LIDOCAINE (4%) 40 MG/ML TOPICAL SOLN 50 ML BOTTLE TP ONE (10:00)
== END 2021-05-16 09:07 | disposition home or self-care (01) ==
LOC: WOUND 09:06
PROVIDERS: ATTEND Surgery
DX: E11.621 Type 2 diabetes mellitus with foot ulcer (principal); L89.622 Pressure ulcer of left heel, stage 2; L97.422 Non-pressure chronic ulcer of left heel and midfoot with fat layer exposed; S31.30XD Unspecified open wound of scrotum and testes, subsequent encounter; L84 Corns and callosities; N49.3 Fournier gangrene; L02.31 Cutaneous abscess of buttock; E11.622 Type 2 diabetes mellitus with other skin ulcer; N18.9 Chronic kidney disease, unspecified; J45.909 Unspecified asthma, uncomplicated; E66.01 Morbid (severe) obesity due to excess calories; Z68.42 Body mass index [BMI] 45.0-49.9, adult; Z79.899 Other long term (current) drug therapy; Z98.42 Cataract extraction status, left eye; Z98.41 Cataract extraction status, right eye; Z98.890 Other specified postprocedural states; X58.XXXD Exposure to other specified factors, subsequent encounter

== ENCOUNTER 2021-05-30 08:58 | Outpatient (CLI) | payer MEDICARE ==
[2021-05-30] MEDS ORDERED: LIDOCAINE (4%) 40 MG/ML TOPICAL SOLN 50 ML BOTTLE TP ONE (09:13)
[2021-05-30] MEDS ORDERED: SILVER NITRATE APPLICATOR 1 EA TP ONE ×2 (10:09→17:00)
== END 2021-05-30 08:59 | disposition home or self-care (01) ==
LOC: WOUND 08:58
PROVIDERS: ATTEND Surgery
DX: E11.621 Type 2 diabetes mellitus with foot ulcer (principal); L89.622 Pressure ulcer of left heel, stage 2; L97.422 Non-pressure chronic ulcer of left heel and midfoot with fat layer exposed; S31.30XD Unspecified open wound of scrotum and testes, subsequent encounter; L84 Corns and callosities; N49.3 Fournier gangrene; L02.31 Cutaneous abscess of buttock; E11.22 Type 2 diabetes mellitus with diabetic chronic kidney disease; N18.9 Chronic kidney disease, unspecified; J45.909 Unspecified asthma, uncomplicated; E66.01 Morbid (severe) obesity due to excess calories; Z68.42 Body mass index [BMI] 45.0-49.9, adult; Z79.899 Other long term (current) drug therapy; Z98.42 Cataract extraction status, left eye; Z98.41 Cataract extraction status, right eye; Z98.890 Other specified postprocedural states; X58.XXXD Exposure to other specified factors, subsequent encounter

== ENCOUNTER 2021-06-27 10:27 | Outpatient (CLI) | payer MEDICARE | END 2021-06-27 10:28 | disposition home or self-care (01) | LOC: WOUND 10:27 | PROVIDERS: ATTEND Surgery | DX: E11.621 Type 2 diabetes mellitus with foot ulcer (principal); L97.422 Non-pressure chronic ulcer of left heel and midfoot with fat layer exposed; L84 Corns and callosities; L89.622 Pressure ulcer of left heel, stage 2; S31.30XD Unspecified open wound of scrotum and testes, subsequent encounter; L02.31 Cutaneous abscess of buttock; E11.52 Type 2 diabetes mellitus with diabetic peripheral angiopathy with gangrene; N49.3 Fournier gangrene; E11.22 Type 2 diabetes mellitus with diabetic chronic kidney disease; N18.9 Chronic kidney disease, unspecified; J45.909 Unspecified asthma, uncomplicated; E66.01 Morbid (severe) obesity due to excess calories; Z68.42 Body mass index [BMI] 45.0-49.9, adult; Z98.42 Cataract extraction status, left eye; Z98.41 Cataract extraction status, right eye; Z98.890 Other specified postprocedural states; Z79.899 Other long term (current) drug therapy; X58.XXXD Exposure to other specified factors, subsequent encounter ==

== ENCOUNTER 2021-07-18 08:59 | Outpatient (CLI) | payer MEDICARE ==
[2021-07-18] MEDS ORDERED: LIDOCAINE (4%) 40 MG/ML TOPICAL SOLN 50 ML BOTTLE TP ONE (09:07)
[2021-07-18] MEDS ORDERED: SILVER NITRATE APPLICATOR 1 EA TP ONE (09:46)
== END 2021-07-18 09:00 | disposition home or self-care (01) ==
LOC: WOUND 08:59
PROVIDERS: ATTEND Surgery
DX: E11.621 Type 2 diabetes mellitus with foot ulcer (principal); L97.422 Non-pressure chronic ulcer of left heel and midfoot with fat layer exposed; L84 Corns and callosities; L89.622 Pressure ulcer of left heel, stage 2; S31.30XD Unspecified open wound of scrotum and testes, subsequent encounter; L02.31 Cutaneous abscess of buttock; E11.52 Type 2 diabetes mellitus with diabetic peripheral angiopathy with gangrene; N49.3 Fournier gangrene; E11.22 Type 2 diabetes mellitus with diabetic chronic kidney disease; N18.9 Chronic kidney disease, unspecified; J45.909 Unspecified asthma, uncomplicated; E66.01 Morbid (severe) obesity due to excess calories; Z68.42 Body mass index [BMI] 45.0-49.9, adult; Z98.42 Cataract extraction status, left eye; Z98.41 Cataract extraction status, right eye; Z98.890 Other specified postprocedural states; Z79.899 Other long term (current) drug therapy; X58.XXXD Exposure to other specified factors, subsequent encounter

== ENCOUNTER 2021-09-19 08:29 | Outpatient (CLI) | payer MEDICARE ==
[2021-09-19] MEDS ORDERED: LIDOCAINE (4%) 40 MG/ML TOPICAL SOLN 50 ML BOTTLE TP ONE (08:53)
== END 2021-09-19 08:30 | disposition home or self-care (01) ==
LOC: WOUND 08:29
PROVIDERS: ATTEND Surgery
DX: E11.621 Type 2 diabetes mellitus with foot ulcer (principal); L89.622 Pressure ulcer of left heel, stage 2; L97.428 Non-pressure chronic ulcer of left heel and midfoot with other specified severity; L84 Corns and callosities; S31.30XD Unspecified open wound of scrotum and testes, subsequent encounter; N49.3 Fournier gangrene; L02.31 Cutaneous abscess of buttock; E11.52 Type 2 diabetes mellitus with diabetic peripheral angiopathy with gangrene; E11.22 Type 2 diabetes mellitus with diabetic chronic kidney disease; N18.9 Chronic kidney disease, unspecified; J45.909 Unspecified asthma, uncomplicated; E66.01 Morbid (severe) obesity due to excess calories; Z68.42 Body mass index [BMI] 45.0-49.9, adult; Z98.42 Cataract extraction status, left eye; Z98.890 Other specified postprocedural states; Z79.899 Other long term (current) drug therapy; X58.XXXD Exposure to other specified factors, subsequent encounter
CPT/HCPCS: 99213; G0463

== ENCOUNTER 2021-12-07 07:22 | Day surgery (SDC) | payer MEDICARE ==
[~2021-12-07 07:22] MED LIST changes: -SODIUM CHLORIDE 0.9% 1000 ML 1,000 ML IV SCH; +ceFAZolin/STERILE WATER 2 GM/20 ML SYRINGE IV NR
[2021-12-07] MEDS ORDERED: SODIUM CHLORIDE 0.9% 1000 ML 1,000 ML ONE (08:28)
[2021-12-07] MEDS ORDERED: SODIUM CHLORIDE 0.9% 1000 ML 1,000 ML IV SCH (08:30)
[2021-12-07 08:31] LABS: Hematocrit 33.6 % (35.5-45.6); Hemoglobin 10.7 gm/dl (11.8-15.2); Mean Corpuscular HGB Conc 32 % (32-34); Mean Corpuscular Volume 99 fl (84-94); Platelet Count 348 K/mm3 (140-440); Red Blood Count 3.39 M/mm3 (3.65-5.03); Red Cell Distribution Width 18.6 % (13.2-15.2)
[2021-12-07 08:45] LABS: Calcium 9.1 mg/dL (8.4-10.2)
--- NOTE | 2021-12-07 09:32 | Anesthesia Consultation ---
Anesthesia Consult and Med Hx Date of service: 12/07/21 - Airway Anesthetic Teeth Evaluation: Good ROM Head & Neck: Adequate Mental/Hyoid Distance: Adequate Mallampati Class: Class II Intubation Access Assessment: Good - Pulmonary Exam CTA: Yes - Cardiac Exam Cardiac Exam: No Murmur - Pre-Operative Health Status ASA Pre-Surgery Classification: ASA3 Proposed Anesthetic Plan: General - Pulmonary Hx Smoking: No Hx Asthma: Yes Hx Respiratory Symptoms: No COPD: No Hx Pneumonia: No Hx Sleep Apnea: No - Cardiovascular System Hx Hypertension: Yes Hx Coronary Artery Disease: No Hx Heart Attack/AMI: No Hx Angina: No Hx Percutaneous Transluminal Coronary Angioplasty (PTCA): No Hx Cardia Arrhythmia: No Hx Pacemaker: No Hx Internal Defibrillator: No Hx Valvular Heart Disease: No Hx Heart Murmur: No Hx Peripheral Vascular Disease: No - Central Nervous System Hx Seizures: No CVA: No Hx Psychiatric Problems: No - Gastrointestinal Hx Ulcer: No Hx Gastroesophageal Reflux Disease: No - Endocrine Hx Renal Disease: No Hx End Stage Renal Disease: Yes Hx Cirrhosis: No Hx Liver Disease: No Hx Insulin Dependent Diabetes: Yes (presented with glucose >600. Currently on insulin gtt) Hx Non-Insulin Dependent Diabetes: Yes Hx Thyroid Disease: No - Hematic Hx Anemia: No Hx Sickle Cell Disease: No - Other Systems Hx Alcohol Use: No Hx Substance Use: No Hx Cancer: No Hx Obesity: Yes
--- NOTE | 2021-12-07 09:32 | Anesthesia Day of Surgery ---
Anesthesia Day of Surgery - Day of Surgery Patient Examined: Yes Patient H&P Reviewed: Yes Patient is NPO: Yes
[2021-12-07] MEDS ORDERED: MIDAZOLAM 2 MG/2 ML INJ IV NR (10:00)
[2021-12-07] MEDS ORDERED: HEPARIN 10,000 UNITS/10 ML VIAL ONE (10:07)
[2021-12-07] MEDS ORDERED: rifAMPin 600 MG VIAL ONE (10:07)
[2021-12-07] MEDS ORDERED: SODIUM CHLORIDE P/F VIAL 10 ML 10 ML ONE (10:07)
[2021-12-07] MEDS ORDERED: propofoL 200 MG/20 ML VIAL IV ONE ×2 (10:07→11:09)
[2021-12-07] MEDS ORDERED: SODIUM CHLORIDE 0.9% 500 ML 500 ML ONE (10:08)
[2021-12-07] MEDS ORDERED: SODIUM CHLORIDE 0.9% 250ML 250 ML ONE (10:08)
[2021-12-07] MEDS ORDERED: fentaNYL 100 MCG/2 ML INJ ONE (10:33)
[2021-12-07] MEDS ORDERED: SODIUM CHLORIDE 0.9% 500 ML IVPB IRRIGATION ONE (10:54)
[2021-12-07] MEDS ORDERED: HEPARIN 10,000 UNITS/10 ML VIAL IV ONE (10:55)
[2021-12-07] MEDS ORDERED: SODIUM CHLORIDE 0.9% IRR 1,500 ML BOTTLE IR ONE (10:55)
[2021-12-07] MEDS ORDERED: HYDROmorphone 0.5 MG/0.5 ML INJ ONE ×2 (11:11→11:20)
[2021-12-07] MEDS ORDERED: SODIUM CHLORIDE 0.9% P/F 10 ML VIAL IV ONE (11:30)
[2021-12-07] MEDS ORDERED: rifAMPin 600 MG VIAL IV ONE (11:31)
[2021-12-07] MEDS ORDERED: BUPIVACAINE/PF (0.5%) 5 MG/1 ML 30 ML VIAL INFILTRATI ONE (12:03)
--- NOTE | 2021-12-07 12:27 | Short Stay Summary ---
Short Stay Documentation Date of service: 12/07/21 Narrative H&P: See H&P - History H&P: obtained from office - Allergies and Medications Current Medications: Allergies diphenhydramine [From Benadryl] Allergy (Verified 12/01/21 14:13) Hives seafood Allergy (Mild, Uncoded 12/01/21 14:13) Shortness of Breath ASTHMA ATTACK Home Medications Medication Instructions Recorded Confirmed Last Taken Type Albuterol Sulfate [Proventil Hfa] 2 puff IH Q4H PRN 05/14/19 12/07/21 03/16/21 History Furosemide [Lasix TAB] 80 mg PO QDAY 11/16/20 12/07/21 12/05/21 History Calcium Acetate [Phoslo] 2 cap PO BIDWM 12/17/20 12/07/21 12/06/21 History Clopidogrel [Plavix] 75 mg PO QDAY 12/01/21 12/07/21 12/06/21 History Semaglutide [Ozempic] 1 mg SQ 1XW 12/01/21 12/07/21 11/27/21 History Pantoprazole [Protonix] 40 mg PO QDAY PRN 12/07/21 12/07/21 12/07/21 06:00 History Active Medications Cefazolin Sodium 3 gm/ Sodium (Chloride) 100 mls @ 100 mls/30 min IV PREOP NR Stop: 12/07/21 15:00 Sodium Chloride (Nacl 0.9% 1000 Ml) 1,000 mls @ 42 mls/hr IV DIRECT HANDY Last Admin: 12/07/21 09:00 Dose: 42 mls/hr Midazolam HCl (Midazolam 2 Mg/2 Ml Inj) 2 mg IV PREOP NR Stop: 12/07/21 23:59 Last Admin: 12/07/21 09:43 Dose: 2 mg - Brief post op/procedure progress note Date of procedure: 12/07/21 Pre-op diagnosis: Complications of Dialysis Access Post-op diagnosis: same Procedure: 1. Revision of Left Arm Arteriovenous Fistula with Removal of Arterial Inflow Stent Graft and Patch Angioplasty with Bovine Pericardial Patch 2. Open Thrombectomy of Left Arm Arteriovenous Fistula with 6/10 Beatris Adherent Graft Thrombectomy Catheter and 6 Beatris Anesthesia: MAC, regional Surgeon: DANIA APONTE Estimated blood loss: 50-100ml Pathology: list (Left Arm Arteriovenous Fistula Stent Graft) Specimen disposition: to lab Condition: stable - Disposition Condition at discharge: Good Disposition: 01 HOME / SELF CARE / HOMELESS Short Stay Discharge Plan Activity: other (Do not use Left arm AVF until Next Sunday12/13/2021) Wound: open to air, keep clean and dry, other (Okay to wash the left arm incision with soap and water but do not soak in water for 2 weeks.) Follow up with: DANIA APONTE MD [Staff Physician] - 14 Days Prescriptions: oxyCODONE /ACETAMINOPHEN [Percocet 5/325] 1 tab PO Q4HR #30 tab
--- NOTE | 2021-12-07 12:31 | Operative Report ---
Operative Report Operative Report: Date of Procedure: 12/07/2021 Pre-operative Diagnosis: Complications of Dialysis Access Post-operative Diagnosis: Same Procedure(s): 1. Revision of Left Arm Arteriovenous Fistula with Removal of Arterial Inflow Stent Graft and Patch Angioplasty with Bovine Pericardial Patch 2. Open Thrombectomy of Left Arm Arteriovenous Fistula with 6/10 Beatris Adherent Graft Thrombectomy Catheter and 6 Beatris Surgeon: Dhruv Kelly M.D. Hospital Medical Assistant: None Anesthesia: Regional/MAC with LMA EBL: 75 mL Counts: Correct Complications: None Condition: Stable Findings: Thrombus throughout the fistula with a significant amount of intimal hyperplasia within the arterial anastomosis. There was a palpable thrill within the arteriovenous fistula at the completion of the case. Specimen: Stent graft from the arterial inflow of the left arm arteriovenous fistula and was sent to pathology. Indication: The patient is a 51-year-old male with history of end-stage renal disease who has a thrombosed left arm arteriovenous fistula. He is in need of revision of the inflow of the fistula as this has appeared to be the cause of the thrombosis. He was given the risk, benefits, and alternative procedures and consented to the procedure. Description of Procedure: Prior to being transported to the operating room the patient had a supraclavicular block of his left upper extremity. The patient was then transported to the operating room and laid in supine position. After he was adequately sedated a timeout was performed and his left arm was prepped and draped in normal sterile fashion. A curvilinear incision was then created over the arterial inflow of the fistula and carried down to the brachial artery using sharp dissection. The artery was dissected circumferentially both proximal distal to the anastomosis and controlled with Vesseloops. I then dissected the arterial inflow the fistula circumferentially until I was distal to the stent graft within the arterial inflow. I systemically heparinized the patient with 3000 units of heparin IV and then clamped the brachial artery both proximal distal to the anastomosis. Using 11 blade to create a venotomy within the arterial inflow of the fistula and then [place] scissors to carry the venotomy both proximal distal to the stent graft. I used a [place] elevator to separate the stent graft from the fistula and then passed this off the specimen. Inspection of the arterial anastomosis demonstrated significant mild intimal hyperplasia which I was able to remove by extended venotomy down to the anastomosis and using a freer elevator to separate the instrument from the fistula and artery. Once this was clear I advanced a 6/10 Beatris Adherent Graft Thrombectomy Catheter towards the venous outflow of the fistula and made several passes until there was no additional thrombus retrieved. At this point there was no active backbleeding so I passed a 6 Beatris and performed additional thrombectomy retrieving additional thrombus until there was adequate venous backbleeding. I flushed the venous outflow of the fistula with heparinized saline and then clamped it with a DeBakey clamp. I then used a bovine pericardial patch to close the venotomy using two 6-0 Prolene's in running fashion. Prior to completing the closure I flashed the inflow and outflow of the fistula and then reclamped. I completed the closure and then released clamps allowing flow through the fistula which had a palpable thrill. Hemostasis within the wound was achieved with Surgicel. Once hemostasis was achieved I anesthetized wound with 0.5% Marcaine and then closed the wound in 2 layers using 3-0 Vicryl in running fashion in the deep dermal layer and 4-0 Monocryl in running fashion the subcuticular layer. I then dressed the wound with Dermabond. The patient tolerated the procedure well. All sponge, needle, and instrument counts were correct. The patient was taken to the recovery area in stable condition.
[2021-12-07] MEDS ORDERED: APIXABAN 5 MG TAB PO SCH (14:00)
[2021-12-07 14:25] VITALS: BP 125/69
== END 2021-12-07 14:20 | disposition home or self-care (01) ==
LOC: OR 07:22
PROVIDERS: ATTEND Surgery Vascular Surgery
DX: T82.868A Thrombosis due to vascular prosthetic devices, implants and grafts, initial encounter (principal); I12.0 Hypertensive chronic kidney disease with stage 5 chronic kidney disease or end stage renal disease; E11.22 Type 2 diabetes mellitus with diabetic chronic kidney disease; N18.6 End stage renal disease; G93.41 Metabolic encephalopathy; D50.0 Iron deficiency anemia secondary to blood loss (chronic); E11.65 Type 2 diabetes mellitus with hyperglycemia; E11.10 Type 2 diabetes mellitus with ketoacidosis without coma; G47.33 Obstructive sleep apnea (adult) (pediatric); J45.909 Unspecified asthma, uncomplicated; E66.9 Obesity, unspecified; Z88.8 Allergy status to other drugs, medicaments and biological substances; Z79.899 Other long term (current) drug therapy; Z98.890 Other specified postprocedural states; Z98.41 Cataract extraction status, right eye; Z82.49 Family history of ischemic heart disease and other diseases of the circulatory system; Y82.8 Other medical devices associated with adverse incidents; Y92.89 Other specified places as the place of occurrence of the external cause
CPT/HCPCS: 36415; 36831; 80048; 82962; 85027; 88304; C1757; C1768; J0690; J1170; J1644; J2250; J2704; J3010; J3490; J7030; J7040; J7050; 88302